=== PATIENT | male | born 1980 | race Caucasian/White ===

== ENCOUNTER 2017-04-06 23:37 | Emergency (ER) | payer OTHER ==
[~2017-04-06] VITALS: Ht 165.1 cm; Wt 92.6 kg
[~2017-04-06 23:37] MED LIST: AMLO-114 PO; GABA800T PO; LSN40 PO
[2017-04-06 23:40] VITALS: TEMP 36.7; Ht 165.1 cm; Wt 92.6 kg
[2017-04-06] MEDS ORDERED: KETOROLAC TROMETHAMINE 60 MG/2 ML VIAL IM STA (23:59)
--- NOTE | 2017-04-07 00:06 | EMERGENCY ROOM VISIT NOTE ---
History Report prepared by Scribadama: Delta Rodriguez Under the Supervision of: Dr. Ren Alaniz D.O. First contact with patient: 23:54 Chief Complaint: HEADACHE Stated Complaint: HEADACHE,LIGHTHEADED,DIZZY,COUGH,NAUSEA History of Present Illness The patient is a 36 year old male who presents to the Emergency Room with complaints of a persistent headache for the past week. The headache is mostly in the back of the head and is described as a pressure sensation. The patient has also been experiencing intermittent fevers, increased coughing and sneezing. He does not have a history of migraines or regular headaches. The patient arrived to the ED with his who is suffering from a migraine. They deny any chemical exposure in their home including carbon monoxide. Source of History: patient Onset: one week ago Position: head Quality: pressure Timing: other (persistent) Associated Symptoms: + cough, + fevers Review of Systems See HPI for pertinent positives and negatives. A total of ten systems were reviewed and were otherwise negative. Past Medical & Surgical Medical Problems: (1) Bronchitis (2) Cellulitis (3) Dental infection (4) Lymphangitis (5) Sinus infection Family History Diabetes mellitus Heart disease Hypertension Stroke Social History Smoking Status: Current Every Day Smoker Alcohol Use: none Drug Use: none Marital Status: Occupation Status: disabled Current/Historical Medications Scheduled Amlodipine (Norvasc), 10 MG PO DAILY Gabapentin (Neurontin), 800 MG PO TID Lisinopril (Lisinopril), 40 MG PO DAILY Allergies Coded Allergies: Omeprazole (Verified Allergy, Unknown, ITCHING, 04/06/17) Physical Exam Vital Signs Date Time Temp Pulse Resp B/P Pulse Ox O2 Delivery O2 Flow Rate FiO2 04/06/17 23:40 36.7 102 18 133/89 96 Room Air Physical Exam GENERAL: Awake, alert, well-appearing, in no distress HENT: Normocephalic, atraumatic. Oropharynx unremarkable. EYES: Normal conjunctiva. Sclera non-icteric. NECK: Supple. No nuchal rigidity. FROM. No JVD. RESPIRATORY: Clear to auscultation. CARDIAC: Regular rate, normal rhythm. Extremities warm and well perfused. Pulses equal. ABDOMEN: Soft, non-distended. No tenderness to palpation. No rebound or guarding. No masses. RECTAL: Deferred. MUSCULOSKELETAL: Chest examination reveals no tenderness. The back is symmetrical on inspection without obvious abnormality. There is no CVA tenderness to palpation. No joint edema. LOWER EXTREMITIES: Calves are equal size bilaterally and non-tender. No edema. No discoloration. NEURO: Normal sensorium. No sensory or motor deficits noted. SKIN: No rash or jaundice noted. Medical Decision & Procedures ED Course 2357: The patient was evaluated in room A9B. A complete history and physical exam was performed. 2359: Toradol 60 mg IM. 0010: I reevaluated the patient. Discussed results and discharge instructions: He verbalized understanding and agreement. The patient is ready for discharge. Medical Decision Differential diagnosis includes tension headache, sinusitis, rhinitis, allergies. Patient is having symptoms suggestive of allergic rhinitis. Patient is afebrile I do not suspect meningitis or sinusitis at this time. Patient was treated with Toradol will need to be treated with outpatient antihistamine use. Impression Primary Impression: Headache Additional Impression: Rhinitis Scribe Attestation The scribe's documentation has been prepared under my direction and personally reviewed by me in its entirety. I confirm that the note above accurately reflects all work, treatment, procedures, and medical decision making performed by me. Departure Information Dispostion Home / Self-Care Referrals Joselito Che M.D. (PCP) Forms HOME CARE DOCUMENTATION FORM, IMPORTANT VISIT INFORMATION Patient Instructions Allergies Nasal, ED Headache Rebound, My [facility] Problem Qualifiers Primary Impression: Headache Headache type: unspecified Headache chronicity pattern: acute headache Intractability: not intractable Qualified Codes: R51 - Headache Additional Impression: Rhinitis Allergic rhinitis trigger: unspecified Allergic rhinitis seasonality: unspecified seasonality
[2017-04-07 01:13] VITALS: BP 148/105; PULSE 87; O2SAT 96
== END 2017-04-07 01:13 | disposition home or self-care (01) ==
LOC: C.EDB 23:40 → C.EDA 04-07 01:13
DX: R51 Headache (principal); J31.0 Chronic rhinitis; Z83.3 Family history of diabetes mellitus; Z82.49 Family history of ischemic heart disease and other diseases of the circulatory system; Z82.3 Family history of stroke; F17.210 Nicotine dependence, cigarettes, uncomplicated; Z79.899 Other long term (current) drug therapy

== ENCOUNTER 2018-06-29 18:35 | Emergency (ER) | payer OTHER ==
[~2018-06-29] VITALS: Ht 175.3 cm; Wt 90.4 kg
[~2018-06-29 18:35] MED LIST changes: -AMLO-114 PO; +AMLO10TA3 PO; +LISI40TA3 PO; -LSN40 PO
[2018-06-29 18:43] VITALS: Ht 175.3 cm; Wt 90.4 kg
[2018-06-29] MEDS ORDERED: CEFAZOLIN SOD 1000MG/7.5 ML IV PUSH IV STA (19:56)
[2018-06-29 20:55] LABS: BASO % 0.6 %; BASO ABS # 0.07 K/uL (0-0.2); EOS % 0.8 %; HEMATOCRIT 46.2 % (42-52); HEMOGLOBIN 15.7 g/dL (14.0-18.0); IG# 0.03 K/uL (0.00-0.02); LYMPH % 12.9 %; LYMPH ABS # 1.56 K/uL (1.2-3.4); MEAN CELL VOLUME 88.3 fL (80-100); MEAN PLATELET VOLUME 12.5 fL (7.4-10.4); MONO % 11.4 %; MONO ABS # 1.39 K/uL (0.11-0.59); NEUT % 74.1 %; NEUT ABS # 8.99 K/uL (1.4-6.5); PLATELET COUNT 187 K/uL (130-400); RED CELL DISTRIBUTION WIDTH CV 13.5 % (11.5-14.5); RED CELL DISTRIBUTION WIDTH SD 43.3 fL (36.4-46.3); WHITE BLOOD COUNT 12.14 K/uL (4.8-10.8)
[2018-06-29 21:12] LABS: CALCIUM 8.6 mg/dl (8.5-10.1); CREATININE 1.06 mg/dl (0.60-1.40); POTASSIUM 3.3 mmol/L (3.5-5.1)
--- NOTE | 2018-06-29 21:51 | DIAGNOSTIC IMAGING REPORT ---
RIGHT LOWER EXTREMITY VENOUS DOPPLER CLINICAL HISTORY: Right leg swelling. Evaluate for deep venous thrombus. COMPARISON STUDY: Right lower extremity venous Doppler November 01, 2016. TECHNIQUE: Sonography of the deep venous system of the right lower extremity was performed. Compression and augmentation were evaluated. FINDINGS: The right common femoral, superficial femoral and popliteal veins were compressible. Augmentation was normal. Flow was shown within the deep calf vessels. Note is made of a prominent 1.5 x 1.2 x 1.5 cm right inguinal lymph node. The cortex is thickened however this node contains a fatty hilum IMPRESSION: 1. No evidence of deep venous thrombus within the right lower extremity. 2. Prominent right inguinal lymph node. This is likely benign given the sonographic appearance however a follow-up ultrasound in 3 months is recommended. Electronically signed by: Gibran Maxwell M.D. 06/29/2018 9:50 PM Dictated Date/Time: 06/29/2018 9:48 PM
[2018-06-29] MEDS ORDERED: CEPH500C PO (22:02)
--- NOTE | 2018-06-29 22:13 | DIAGNOSTIC IMAGING REPORT ---
CHEST 2 VIEWS ROUTINE CLINICAL HISTORY: Cough. Evaluate for pneumonia. COMPARISON STUDY: Chest radiograph October 08, 2016. FINDINGS: Lung volumes are at the lower limits of normal. No pneumothorax or pleural effusion is noted. There is no consolidation or evidence for pulmonary edema. There is borderline cardiomegaly. IMPRESSION: No acute cardiopulmonary findings. Electronically signed by: Gibran Maxwell M.D. 06/29/2018 10:12 PM Dictated Date/Time: 06/29/2018 10:11 PM
[2018-06-29 22:20] VITALS: BP 154/76; PULSE 92; TEMP 37.4; O2SAT 98
--- NOTE | 2018-06-30 18:36 | EMERGENCY ROOM VISIT NOTE ---
History Report prepared by Shana: Anjel Qureshi Under the Supervision of: Dr. Chris Bourgeois M.D. First contact with patient: 19:50 Chief Complaint: INFECTION Stated Complaint: R LEG CELLULITIS Nursing Triage Summary: Patient with right lower leg cellulitis. Patient noticed the redness today. History of Present Illness The patient is a 37 year old male who presents to the Emergency Room with complaints of a right leg pain and swelling since this morning. He notes starting this morning he has had burning and pain in his right leg, with swelling noted. He has noted a fever of 103 degrees. He notes nausea, but denies vomiting/diarrhea. The patient does note intermittent shortness of breath and a mildly productive cough, but notes he has had a cold the past few days which he is getting over. He notes a history of infections in his right leg similar to this for the past few years, but denies a history of MRSA. He states he has an infection like this 3-4 times every year and is usually prescribed Keflex. He denies chest pain. The patient notes his most recent Doppler US was in November 2017 which was negative for DVT. Source of History: patient Onset: x1 day Position: leg (right) Symptom Intensity: moderate Quality: ache Timing: constant, worsening Associated Symptoms: + fevers, + SOB, No chills, No headache, No cough, No neck pain, No chest pain, No nausea, No vomiting, No abdominal pain, No diarrhea , No urinary symptoms Review of Systems See HPI for pertinent positives & negatives. A total of 10 systems reviewed and were otherwise negative. Constitutional: + fever, No chills Respiratory: + cough, + shortness of breath Cardiovascular: No chest pain Abdomen: No pain, No nausea, No vomiting, No diarrhea Musculoskeletal: + swelling Genitourinary - Male: No hematuria, No dysuria, No urinary frequency, No urinary urgency Integumentary: + rash Past Medical & Surgical Medical Problems: (1) Bronchitis (2) Cellulitis (3) Dental infection (4) Lymphangitis (5) Sinus infection Family History Diabetes mellitus Heart disease Hypertension Stroke Social History Smoking Status: Never Smoker Alcohol Use: none Drug Use: none Marital Status: Occupation Status: disabled Current/Historical Medications Scheduled Amlodipine (Norvasc), 10 MG PO DAILY Cephalexin Monohydrate (Keflex), 500 MG PO QID Gabapentin (Neurontin), 800 MG PO TID Allergies Coded Allergies: Omeprazole (Verified Allergy, Unknown, ITCHING, 06/29/18) Physical Exam Vital Signs Date Time Temp Pulse Resp B/P (MAP) Pulse Ox O2 Delivery O2 Flow Rate FiO2 06/29/18 22:20 37.4 92 20 154/76 98 06/29/18 21:15 96 18 141/94 97 Room Air 06/29/18 18:43 36.9 109 18 134/82 97 Room Air Physical Exam Constitutional: Vital signs reviewed. Eyes: Pupils are equal round reactive to light. Conjunctiva are noninjected. ENT: Pharynx is clear without erythema or exudate. Mucous membranes are moist. Neck supple without meningeal signs. Respiratory: Clear to auscultation bilaterally. Breath sounds are equal bilaterally. Cardiovascular: Regular rate and rhythm. No rubs or gallops. GI: Soft, nondistended and nontender. Bowel sounds are present. Musculoskeletal: Right lower extremity with erythema, increased warmth, and swelling below the knee. No joint tenderness. Normal distal pulses. Integumentary: Cellulitis right lower extremity. Neurological: The patient is awake and alert. No focal deficits. Psychiatric: Normal affect. Medical Decision & Procedures Laboratory Results 06/29/18 20:36 Red Blood Count 5.23, Mean Corpuscular Volume 88.3, Mean Corpuscular Hemoglobin 30.0, Mean Corpuscular Hemoglobin Concent 34.0, Mean Platelet Volume 12.5, Neutrophils (%) (Auto) 74.1, Lymphocytes (%) (Auto) 12.9, Monocytes (%) (Auto) 11.4, Eosinophils (%) (Auto) 0.8, Basophils (%) (Auto) 0.6, Neutrophils # (Auto ) 8.99, Lymphocytes # (Auto) 1.56, Monocytes # (Auto) 1.39, Eosinophils # (Auto ) 0.10, Basophils # (Auto) 0.07 06/29/18 20:36 Test 06/29/18 20:36 White Blood Count 12.14 K/uL (4.8-10.8) Red Blood Count 5.23 M/uL (4.7-6.1) Hemoglobin 15.7 g/dL (14.0-18.0) Hematocrit 46.2 % (42-52) Mean Corpuscular Volume 88.3 fL (80-100) Mean Corpuscular Hemoglobin 30.0 pg (25-34) Mean Corpuscular Hemoglobin Concent 34.0 g/dl (32-36) Platelet Count 187 K/uL (130-400) Mean Platelet Volume 12.5 fL (7.4-10.4) Neutrophils (%) (Auto) 74.1 % Lymphocytes (%) (Auto) 12.9 % Monocytes (%) (Auto) 11.4 % Eosinophils (%) (Auto) 0.8 % Basophils (%) (Auto) 0.6 % Neutrophils # (Auto) 8.99 K/uL (1.4-6.5) Lymphocytes # (Auto) 1.56 K/uL (1.2-3.4) Monocytes # (Auto) 1.39 K/uL (0.11-0.59) Eosinophils # (Auto) 0.10 K/uL (0-0.5) Basophils # (Auto) 0.07 K/uL (0-0.2) RDW Standard Deviation 43.3 fL (36.4-46.3) RDW Coefficient of Variation 13.5 % (11.5-14.5) Immature Granulocyte % (Auto) 0.2 % Immature Granulocyte # (Auto) 0.03 K/uL (0.00-0.02) Anion Gap 8.0 mmol/L (3-11) Est Creatinine Clear Calc Drug Dose 107.1 ml/min Estimated GFR () 104.1 Estimated GFR (Non- 89.8 BUN/Creatinine Ratio 9.6 (10-20) Calcium Level 8.6 mg/dl (8.5-10.1) Medications Administered Medications (Trade) Dose Ordered Sig/Erica Route Start Time Stop Time Status Last Admin Dose Admin Cefazolin Sodium (Cefazolin 1000mg Iv Push) 1,000 mg NOW STAT IV 06/29/18 19:56 06/29/18 19:58 DC 06/29/18 21:07 1,000 MG ED Course Recheck: 2200: Reviewed test results with patient. Medical Decision This is a 37-year-old male presents with right leg swelling and redness with cough. Differential diagnosis includes cellulitis, DVT, superficial thrombophlebitis, pneumonia, bronchitis. I did perform a limited focused review of portions of the patient's old chart on the electronic medical record. The patient has had no recent pertinent visits to this hospital. I did evaluate the patient as noted above. IV access was established. The patient was placed on a continuous monitoring engineer. I did order and personally review the patient's chest x-ray as described above. He does not have pneumonia. I did order and review the patient's blood work as noted in the electronic medical record. His white blood cell count is slightly elevated and he has mild hypokalemia. I did order a Doppler ultrasound of the right leg. I did review the images myself as well as the radiology report as described above. There is no evidence of DVT he was treated with Ancef and discharged with a prescription for Keflex. I did discuss the test results with him. He was advised to follow-up closely with his doctor and to return for any worsening symptoms. Medication Reconcilliation Current Medication List: was personally reviewed by me Blood Pressure Screening Patient's blood pressure: Elevated blood pressure Blood pressure disposition: Referred to PCP Impression Primary Impression: Cellulitis of right leg Additional Impression: Bronchitis Scribe Attestation The scribe's documentation has been prepared under my direct and personally reviewed by me in its entirety. I confirm that the note above accurately reflects all work, treatment, procedures, and medical decision making performed by me. Departure Information Dispostion Home / Self-Care Prescriptions Cephalexin Monohydrate (Keflex) 500 Mg Cap 500 MG PO QID for 10 Days, #40 CAP Prov: Chris Bourgeois M.D. 06/29/18 Referrals Joseltio Che M.D. (PCP) Patient Instructions My [facility] Problem Qualifiers
== END 2018-06-29 22:21 | disposition home or self-care (01) ==
LOC: C.EDB 18:37 → C.EDC 22:21
DX: L03.115 Cellulitis of right lower limb (principal); J40 Bronchitis, not specified as acute or chronic; Z79.899 Other long term (current) drug therapy; Z88.8 Allergy status to other drugs, medicaments and biological substances

== ENCOUNTER 2023-01-28 16:06 | Inpatient (IN) ==
[2023-01-28] MEDS ORDERED: VANCOMYCIN HCL 2,000 MG in SODIUM CHLORIDE 0.9% 500 ML IV ONE (17:14)
[2023-01-28] MEDS ORDERED: VANCOMYCIN CONSULT ACTIVE PRN (17:14)
[2023-01-28] MEDS ORDERED: PIPERACILLIN/TAZOBACTAM 4.5 GM/120 ML BAG IV ONE (17:14)
[2023-01-28] MEDS ORDERED: SODIUM CHLORIDE 0.9% 1000ML 1,000 ML IV SCH ×2 (17:15→20:51)
[2023-01-28] MEDS ORDERED: NICOTINE 21 MG/24 HR TDSY TD STA (17:15)
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
[2023-01-28] MEDS ORDERED: ACETAMINOPHEN 500 MG TAB PO STA (17:49)
[2023-01-28 17:55] LABS: Hematocrit (blood only) 43.2 % (42.0-52.0); Hemoglobin 14.7 g/dl (14.0-18.0); Mean Corpuscular Hemoglobin 31.1 pg (25.0-34.0); Mean Corpuscular Volume 91.3 fL (80.0-100.0); Mean Platelet Volume 12.1 fL (9.4-12.4); Platelet Count 250 K/uL (130-400); RDW Standard Deviation 47.1 fL (36.4-46.3); Red Blood Count 4.73 M/uL (4.70-6.10); White Blood Count 34.46 K/ul (4.8-10.8)
[2023-01-28 18:03] LABS: Albumin Globulin Ratio 1.2 (0.9-2); Albumin Level 3.8 gm/dl (3.4-5.0); BUN Creatinine Ratio 12.4 (10-20); Bilirubin,Total 0.5 mg/dl (0.2-1.0); Calcium 8.7 mg/dl (8.5-10.1); Creatinine Clr Calc Pharmacy 87.4 ml/min; Est GFR (African American) 85.7 ml/min; Est GFR (Non-African American) 73.9 ml/min; Globulin 3.2 gm/dl (2.5-4.0); Magnesium 1.7 mg/dl (1.7-2.4); Potassium 3.7 mmol/L (3.5-5.1)
[2023-01-28 18:13] LABS: Basophils # (auto) 0.11 K/uL (0-0.2); Basophils % (auto) 0.3 %; Eosinophils # (auto) 0.01 K/uL (0-0.50); Immature Granulocytes # (auto) 1.35 K/uL (0.01-0.20); Immature Granulocytes % (auto) 3.9 %; Lymphocytes # (auto) 0.37 K/uL (1.2-3.4); Lymphocytes % (auto) 1.1 %; Monocytes # (auto) 0.45 K/uL (0.11-0.59); Monocytes % (auto) 1.3 %; Neutrophils # (auto) 32.17 K/uL (1.40-6.50); Neutrophils % (auto) 93.4 %
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
[2023-01-28] MEDS ORDERED: ONDANSETRON INJ 2 MG/ML 2 ML VIAL IV STA (19:26)
[2023-01-28] MEDS ORDERED: LACTATED RINGER'S 1,000 ML IV ONE (20:38)
[2023-01-28] MEDS ORDERED: LORazepam 0.5 MG TAB PO PRN (20:51)
[2023-01-28] MEDS ORDERED: ACETAMINOPHEN 325 MG TAB PO PRN (20:51)
[2023-01-28] MEDS ORDERED: ONDANSETRON INJ 2 MG/ML 2 ML VIAL IV PRN (20:51)
[2023-01-28] MEDS ORDERED: ACETAMINOPHEN 1,000 MG/100 ML VIAL IV PRN (22:20)
[2023-01-28] MEDS: DAPTOmycin 475 MG in SYRINGE 0 ML IV SCH (22:26)
[2023-01-28] MEDS: CEFEPIME 2,000 MG in SYRINGE 0 ML IV SCH (22:27)
[2023-01-28] MEDS: HEPARIN SOD 5,000 UNIT/0.5 ML VIAL SQ SCH (22:28)
[2023-01-28] MEDS: CETIRIZINE HCL 10 MG TABLET PO SCH (22:29)
[2023-01-28] MEDS: FAMOTIDINE 20 MG TAB PO SCH (22:29)
[2023-01-28] MEDS: GABAPENTIN 800 MG TAB PO SCH (22:30)
[2023-01-29] MEDS ORDERED: POTASSIUM CHLORIDE PWD 20 MEQ PACK PO STA (03:03)
[2023-01-29] MEDS ORDERED: LACTATED RINGER'S 1,000 ML IV ONE (03:15)
[2023-01-29] MEDS ORDERED: KETOROLAC TROMETHAMINE 15 MG/ML VIAL IV ONE (03:15)
[2023-01-29] MEDS: MAGNESIUM SULFATE / D5W 1 GM/100 ML BAG IV SCH ×2 (03:42→06:04)
[2023-01-29] MEDS: CEFEPIME 2,000 MG in SYRINGE 0 ML IV SCH ×2 (06:03→15:18)
[2023-01-29] MEDS: HEPARIN SOD 5,000 UNIT/0.5 ML VIAL SQ SCH ×3 (06:03→21:44)
[2023-01-29 07:02] LABS: Hemoglobin 13.2 g/dl (14.0-18.0); Mean Corpuscular Hemoglobin 30.6 pg (25.0-34.0); Mean Corpuscular Hgb Conc 33.8 g/dL (32.0-36.0); Mean Corpuscular Volume 90.5 fL (80.0-100.0); Platelet Count 195 K/uL (130-400); RDW Coefficient of Variation 14.2 % (11.5-14.5); RDW Standard Deviation 47.1 fL (36.4-46.3); Red Blood Count 4.31 M/uL (4.70-6.10); White Blood Count 33.17 K/ul (4.8-10.8)
[2023-01-29 08:16] LABS: BUN Creatinine Ratio 11.2 (10-20); Calcium 7.9 mg/dl (8.5-10.1); Creatinine Clr Calc Pharmacy 86.5 ml/min; Est GFR (African American) 82.4 ml/min; Est GFR (Non-African American) 71.1 ml/min; Potassium 3.6 mmol/L (3.5-5.1)
[2023-01-29] MEDS: SODIUM CHLORIDE 0.9% 1000ML 1,000 ML IV SCH ×2 (08:37→16:40)
[2023-01-29] MEDS ORDERED: NICOTINE 21 MG/24 HR TDSY TD SCH (09:00)
[2023-01-29] MEDS ORDERED: amLODIPine BESYLATE 5 MG TAB PO SCH (09:00)
[2023-01-29] MEDS: MONTELUKAST SODIUM 10 MG TABLET PO SCH (09:47)
[2023-01-29] MEDS: ACETAMINOPHEN 325 MG TAB PO SCH ×3 (09:47→21:41)
[2023-01-29] MEDS: GABAPENTIN 800 MG TAB PO SCH ×3 (09:47→21:43)
[2023-01-29] MEDS: FAMOTIDINE 20 MG TAB PO SCH ×2 (09:47→21:43)
[2023-01-29] MEDS: PANTOprazole 40 MG TAB PO SCH (09:47)
--- NOTE | 2023-01-29 10:39 | Electrocardiogram Report ---
Test Reason : Blood Pressure : / mmHG Vent. Rate : 123 BPM Atrial Rate : 123 BPM P-R Int : 118 ms QRS Dur : 088 ms QT Int : 322 ms P-R-T Axes : 066 021 055 degrees QTc Int : 460 ms Sinus tachycardia Otherwise normal ECG When compared with ECG of 28-JAN-2023 03:26, No significant change was found Confirmed by Hebert Valdez ([id number]) on 01/29/2023 10:39:11 AM Referred By: REFERRED SELF Confirmed By:Hebert Valdez
[2023-01-29] MEDS ORDERED: GADOBUTROL 30ML VIAL IV ONE (11:56)
--- NOTE | 2023-01-29 12:32 | Magnetic Resonance Report ---
MRI OF THE RIGHT TIBIA AND FIBULA COMBO CLINICAL HISTORY: Cellulitis. COMPARISON STUDY: CT scan of the right tibia and fibula dated 01/28/2023. TECHNIQUE: MRI of the right tibia and fibula is performed utilizing various T1 and T2-weighted sequen belen in the axial, sagittal, and coronal planes. Contrast-enhanced sequences were acquired following t he IV administration of 10.5 cc of Gadavist. The examination is degraded by motion artifact. FINDINGS: Normal marrow signal intensity is maintained throughout the right tibia and fibula. There i s no marrow edema or erosion to suggest osteomyelitis. The knee and ankle joints are grossly maintain ed. Subcutaneous soft tissue edema and fluid is seen throughout the right lower extremity. No organiz ed fluid collection is seen to indicate abscess. There is no MRI evidence of soft tissue gas. The Ach illes tendon is intact as visualized. The regional musculature is normal in bulk and signal intensity . IMPRESSION: 1. No bony abnormality seen involving the right tibia or fibula. 2. There is evidence of cellulitis throughout the right lower extremity. 3. No organized/drainable fluid collection is seen to suggest abscess. Dictated: 01/29/2023 12:08 PM Transcribed: 01/29/2023 12:21 PM Edith [id number] ABDIAS_Jose Enrique Electronically signed by: Bob Crawford M.D. 01/29/2023 12:30 PM
[2023-01-29] MEDS: BENZONATATE 100 MG CAPSULE PO PRN ×2 (16:05→21:45)
[2023-01-29] MEDS: NICOTINE 14 MG/24 HR PATCH TD SCH (16:30)
[2023-01-29] MEDS ORDERED: NAPROXEN 250 MG TAB PO PRN (16:30)
[2023-01-29] MEDS ORDERED: PIPERACILLIN/TAZOBACTAM 4.5 GM in DEXTROSE 5% 100 ML IV ONE (16:45)
--- NOTE | 2023-01-29 17:13 | Hospitalist Progress Note ---
Date of Service January 29, 2023 Assessment & Plan (1) Severe sepsis: (2) Cellulitis of right lower extremity: Plan: Per NAKIA florian's notes with addendum: Admit to [facility] with telemetry Patient presenting from home after signing out AMA this morning for being admitted for RLE cellulitis In the ED, patient has low-grade temp of 37.6, tachycardic in the 120s, WBC 34 K, lactate 2.1. BP stable. S/p Vanco and Zosyn in the ED, continue with Dapto and cefepime. Previously performed: venous Doppler negative for DVT, no signs of osteomyelitis or abscess on lower extremity CT Follow blood cultures 01/29 MRI of the right lower extremity: No abscess, fluid collection, gas collection Blood cultures: Pending Still febrile With leukocytosis of 33 K Continue daptomycin, change cefepime to Zosyn ID consulted IV fluids Scheduled Tylenol for fever, with as needed naproxen (3) NATALIA (acute kidney injury): Plan: Creatinine on earlier labs 1.6, now improved to 1.2 No signs of renal obstruction on previously performed CT ABD/pelvis NATALIA due to sepsis Continue to hold lisinopril for now Continue IVF Follow renal functions 01/29 Resolved (4) Hypertension: Plan: BP controlled, continue amlodipine Hold lisinopril due to NATALIA 01/29 On the lower side Hold amlodipine (5) Tobacco abuse: Plan: Cessation encouraged Nicotine patch ordered As needed inhalers DVT PROPHYLAXIS SQ heparin plan of care discussed with patient and family at the bedside in detail and at length all questions answered They are understanding, agreeable, comfortable with the plan of care Admission and Anticipated Discharge Date Admission Date: January 28, 2023 Subjective Follow-up for right lower extremity cellulitis, etc. Seen resting in bed, comfortable, not in distress Reports feeling somewhat better compared to yesterday Still febrile Has some discomfort in the right lower extremity Mild headache No shortness of breath, chest pain, palpitations, dizziness No other symptoms Review of Systems Review of Systems: all noted and negative except for above Physical Exam Physical Exam: General- oriented x 3, not in distress, speaks in sentences with no effort or accessory muscle use Eyes- anicteric Neck- no JVD Lungs- clear breath sounds bilaterally, no rales/wheezes Heart- normal rate, regular rhythm; no murmurs Abdomen- normal bowel sounds, nondistended, soft, nontender Extremities-r Right lower extremity: Lower leg-significant erythema, edema, mild warmth Faint streaking on the inguinal area Left lower extremity: Essentially normal Neuro- alert, oriented x 3; no gross focal neurologic deficits Skin- warm & dry Results & Data Results & Data ([facility]) Vital Signs (Past 12 Hours) Vital Signs Temp Pulse Pulse Resp BP Pulse Ox O2 Del Method 01/29/23 14:16 39.3 C H 01/29/23 16:11 122 H 01/29/23 15:46 39.5 C H 132 H 20 114/68 96 Room Air 01/29/23 15:24 Room Air 01/29/23 10:23 112 H 01/29/23 07:46 38.2 C H 120 H 20 123/66 98 Room Air all noted and reviewed including below
[2023-01-29] MEDS ORDERED: XOPENEX/ATROVENT 1.25mg/0.5MG NEB COMBO NEB PRN (17:24)
[2023-01-29] MEDS ORDERED: ALBUTEROL HFA 8 GM INHALER INH PRN (17:24)
[2023-01-29] MEDS: CETIRIZINE HCL 10 MG TABLET PO SCH (21:43)
[2023-01-29] MEDS: PIPERACILLIN/TAZOBACTAM 4.5 GM in DEXTROSE 5% 100 ML IV SCH (21:44)
[2023-01-29] MEDS: DAPTOmycin 475 MG in SYRINGE 0 ML IV SCH (21:56)
[2023-01-29] MEDS: IPRATROPIUM BROMIDE NEB SOLN 0.02% 2.5 ML VIAL INH PRN (21:56)
[2023-01-29] MEDS: LEVALBUTEROL 1.25MG/0.5ML NEB INH PRN (21:56)
[2023-01-30] MEDS: SODIUM CHLORIDE 0.9% 1000ML 1,000 ML IV SCH ×3 (01:15→18:12)
[2023-01-30] MEDS: ACETAMINOPHEN 325 MG TAB PO SCH ×4 (05:00→20:27)
[2023-01-30] MEDS: HEPARIN SOD 5,000 UNIT/0.5 ML VIAL SQ SCH ×3 (05:59→20:28)
[2023-01-30] MEDS: PIPERACILLIN/TAZOBACTAM 4.5 GM in DEXTROSE 5% 100 ML IV SCH (05:59)
[2023-01-30] MEDS: BENZONATATE 100 MG CAPSULE PO PRN ×2 (06:07→20:28)
[2023-01-30] MEDS: GABAPENTIN 800 MG TAB PO SCH ×3 (07:41→20:28)
[2023-01-30] MEDS: NICOTINE 14 MG/24 HR PATCH TD SCH (07:42)
[2023-01-30] MEDS: MONTELUKAST SODIUM 10 MG TABLET PO SCH (09:32)
[2023-01-30] MEDS: PANTOprazole 40 MG TAB PO SCH (09:32)
[2023-01-30] MEDS: FAMOTIDINE 20 MG TAB PO SCH ×2 (09:32→20:28)
[2023-01-30] MEDS ORDERED: VANCOMYCIN CONSULT ACTIVE PRN (11:54)
[2023-01-30] MEDS ORDERED: VANCOMYCIN HCL 2,000 MG in SODIUM CHLORIDE 0.9% 500 ML IV ONE (12:30)
[2023-01-30 13:50] LABS: Creatinine Clr Calc Pharmacy 90.1 ml/min; Est GFR (African American) 86.5 ml/min; Est GFR (Non-African American) 74.7 ml/min
--- NOTE | 2023-01-30 14:14 | Hospitalist Progress Note ---
Date of Service January 30, 2023 Assessment & Plan (1) Severe sepsis: (2) Cellulitis of right lower extremity: Plan: Presented from home with right lower extremity cellulitis. Febrile overnight, tachycardic. WBC elevated to 33. Venous duplex negative for DVT. MRI of the lower extremity did not show any abscess or fluid collection Blood culture negative so far. ID consulted; recommend continue on vancomycin for now; switched to linezolid at discharge to complete 14-day course. (3) NATALIA (acute kidney injury): Plan: Creatinine on earlier labs 1.6, now improved to 1.2 No signs of renal obstruction on previously performed CT ABD/pelvis NATALIA due to sepsis Continue to hold lisinopril for now Continue IVF Follow renal functions (4) Hypertension: Plan: Antihypertensive on hold due to hypotension (5) Tobacco abuse: Plan: Cessation encouraged Nicotine patch ordered As needed inhalers DVT PROPHYLAXIS SQ heparin Admission and Anticipated Discharge Date Admission Date: January 28, 2023 Subjective Patient seen and examined at bedside. Febrile overnight with chills. He reports that redness and swelling has improved. Review of Systems Review of Systems: All systems reviewed & are unremarkable except as noted in Subjective Physical Exam Physical Exam: Constitutional: WD/WN, vitals as above, NAD, sitting up in bed, pleasant, conversing easily Respiratory: normal respiratory effort, lungs clear to auscultation, no wheeze, rales, rhonchi. Normal insp/exp effort, no accessory muscle use Cardiovascular: RRR, no murmur, no edema Vessels: no JVD or carotid bruit Chest: normal inspection of chest Abdomen: normal bowel sounds, soft, nontender, no hepatosplenomegaly Musculoskeletal: Right leg swollen, red and warm. Tenderness on palpation. Skin: no rashes, warm and dry normal turgor Neurologic: PERRL, EOMI, accommodation nl, no face palsy, no dysarthria CN's II- XI intact bilaterally and moves all extremities Psychiatric: A+Ox3, euthymic affect Lymphatic: no cervical or axillary lymphadenopathy : deferred Results & Data Results & Data ([facility]) Vital Signs (Past 12 Hours) Vital Signs Temp Pulse Pulse Resp BP Pulse Ox O2 Del Method 01/30/23 10:54 37.1 C 112 H 16 129/79 96 Room Air 01/30/23 08:00 Room Air 01/30/23 07:42 37.1 C 112 H 16 131/82 96 Room Air 01/30/23 07:00 118 H 01/30/23 06:15 116 H 20 94 Room Air 01/30/23 02:49 36.9 C 103 H 20 123/79 94 Room Air Laboratory Results Laboratory Results WBC 33.17 K/ul (4.8-10.8) H* 01/29/23 06:04 RBC 4.31 M/uL (4.70-6.10) L 01/29/23 06:04 Hgb 13.2 g/dl (14.0-18.0) L 01/29/23 06:04 Hct 39.0 % (42.0-52.0) L 01/29/23 06:04 MCV 90.5 fL (80.0-100.0) 01/29/23 06:04 MCH 30.6 pg (25.0-34.0) 01/29/23 06:04 MCHC 33.8 g/dL (32.0-36.0) 01/29/23 06:04 RDW Std Deviation 47.1 fL (36.4-46.3) H 01/29/23 06:04 RDW Coeff of Florencio 14.2 % (11.5-14.5) 01/29/23 06:04 Plt Count 195 K/uL (130-400) 01/29/23 06:04 MPV 12.0 fL (9.4-12.4) 01/29/23 06:04 Immature Gran % (Auto) 3.9 % 01/28/23 17:26 Neut % (Auto) 93.4 % 01/28/23 17:26 Lymph % (Auto) 1.1 % 01/28/23 17:26 Power % (Auto) 1.3 % 01/28/23 17:26 Eos % (Auto) 0.0 % 01/28/23 17:26 Baso % (Auto) 0.3 % 01/28/23 17:26 Neut # (Auto) 32.17 K/uL (1.40-6.50) H 01/28/23 17:26 Lymph # (Auto) 0.37 K/uL (1.2-3.4) L 01/28/23 17:26 Power # (Auto) 0.45 K/uL (0.11-0.59) 01/28/23 17:26 Eos # (Auto) 0.01 K/uL (0-0.50) 01/28/23 17:26 Baso # (Auto) 0.11 K/uL (0-0.2) 01/28/23 17:26 Immature Gran # (Auto) 1.35 K/uL (0.01-0.20) H 01/28/23 17:26 Sodium 140 mmol/L (136-145) 01/29/23 06:04 Potassium 3.6 mmol/L (3.5-5.1) 01/29/23 06:04 Chloride 112 mmol/L (98-107) H 01/29/23 06:04 Carbon Dioxide 19 mmol/L (21-32) L 01/29/23 06:04 Anion Gap 9 (3-11) 01/29/23 06:04 BUN 14 mg/dl (6-23) 01/29/23 06:04 Creatinine 1.20 mg/dl (0.6-1.4) 01/30/23 08:37 Est Cr Clr Drug Dosing 90.1 ml/min 01/30/23 08:37 Est GFR ( Amer) 86.5 ml/min 01/30/23 08:37 Est GFR (Non-Af Amer) 74.7 ml/min 01/30/23 08:37 BUN/Creatinine Ratio 11.2 (10-20) 01/29/23 06:04 Glucose 96 mg/dl (70-99(Fasting)) 01/29/23 06:04 Lactate 1.9 mmol/L (0.4-2.0) 01/28/23 19:23 Calcium 7.9 mg/dl (8.5-10.1) L 01/29/23 06:04 Magnesium 1.7 mg/dl (1.7-2.4) 01/28/23 17:26 Total Bilirubin 0.5 mg/dl (0.2-1.0) 01/28/23 17:26 AST 24 U/L (13-39) 01/28/23 17:26 ALT 30 U/L (7-52) 01/28/23 17:26 Alkaline Phosphatase 68 U/L (34-104) 01/28/23 17:26 Total Creatine Kinase 445 U/L (30-223) H 01/30/23 08:36 Total Protein 7.0 gm/dl (6.0-8.3) 01/28/23 17:26 Albumin 3.8 gm/dl (3.4-5.0) 01/28/23 17:26 Globulin 3.2 gm/dl (2.5-4.0) 01/28/23 17:26 Albumin/Globulin Ratio 1.2 (0.9-2) 01/28/23 17:26 Procalcitonin 4.54 ng/ml (0-0.5) H 01/28/23 17:26 SARS-CoV-2, RNA, NAAT NEGATIVE (NEGATIVE) 01/28/23 18:20 Impressions Lower Extremity MRI 01/29/23 09:19 MRI OF THE RIGHT TIBIA AND FIBULA COMBO CLINICAL HISTORY: Cellulitis. COMPARISON STUDY: CT scan of the right tibia and fibula dated 01/28/2023. TECHNIQUE: MRI of the right tibia and fibula is performed utilizing various T1 and T2-weighted sequences in the axial, sagittal, and coronal planes. Contrast- enhanced sequences were acquired following the IV administration of 10.5 cc of Gadavist. The examination is degraded by motion artifact. FINDINGS: Normal marrow signal intensity is maintained throughout the right t ibia and fibula. There is no marrow edema or erosion to suggest osteomyelitis. The knee and ankle joints are grossly maintained. Subcutaneous soft tissue edema and fluid is seen throughout the right lower extremity. No organized fluid collection is seen to indicate abscess. There is no MRI evidence of soft tissue gas. The Achilles tendon is intact as visualized. The regional musculature is normal in bulk and signal intensity. IMPRESSION: 1. No bony abnormality seen involving the right tibia or fibula. 2. There is evidence of cellulitis throughout the right lower extremity. 3. No organized/drainable fluid collection is seen to suggest abscess. Dictated: 01/29/2023 12:08 PM Transcribed: 01/29/2023 12:21 PM Edith [id number] ABDIAS_Jose Enrique Electronically signed by: oBb Crawford M.D. 01/29/2023 12:30 PM
--- NOTE | 2023-01-30 14:35 | Pharmacy Report ---
Pharmacy PK ABX Note - Date of Service January 30, 2023 - Assessment and Plan Assessment 42 year old M receiving vancomycin for treatment of sepsis 2/2 right lower extremity cellulitis. Blood cultures no growth to date. Patient was receiving daptomycin q24h on 01/28 and 01/29. CPK today elevated and transitioned to vancomycin monotherapy. ID consulted. Day #1 (vancomycin) of antimicrobial therapy. Plan Vancomycin * Loading dose: 2000 mg IV x 1 * Maintenance dose: 1250 mg IV every 12 hours * Regimen is predicted to achieve target AUC/NITIN of 400-600 mg/L.hr * Will obtain a level prior to the 3rd dose of maintenance regimen as BMI >35 and at risk for accumulation. Pharmacy will continue to follow and will adjust dose/frequency as necessary. Thank you. Pharmacy has transitioned to AUC monitoring for vancomycin. AUC/NITIN is the preferred PK/PD target and is associated with decreased risk of nephrotoxicity compared to traditional trough targets.
[2023-01-30] MEDS: LEVALBUTEROL 1.25MG/0.5ML NEB INH PRN (18:21)
[2023-01-30] MEDS: IPRATROPIUM BROMIDE NEB SOLN 0.02% 2.5 ML VIAL INH PRN (18:21)
[2023-01-30] MEDS: CETIRIZINE HCL 10 MG TABLET PO SCH (20:28)
[2023-01-30] MEDS ORDERED: OPTIRAY 350 100ml IV ONE (20:45)
[2023-01-30] MEDS: MAGNESIUM SULFATE / D5W 1 GM/100 ML BAG IV SCH (21:02)
--- NOTE | 2023-01-30 21:10 | CT Scan Report ---
CT tib/fib RT w con CLINICAL HISTORY: worsening swelling of right lower leg. Ro abscess COMPARISON STUDY: Right lower leg MRI 01/29/[address] right lower leg CT 01/28/2023. FINDINGS: Progressive subcutaneous edema within the right lower leg with associated skin thickening. No loculated fluid collections to suggest an abscess. No soft tissue gas identified. No radiopaque fo reign bodies. The muscle compartments remain intact. The major vascular structures appear patent. No fracture or dislocation within the right lower leg. No erosive changes to suggest an osteomyelitis. IMPRESSION: 1. Progressive subcutaneous edema and skin thickening within the right lower leg. This may represent a cellulitis. 2. No loculated fluid collections to suggest an abscess. 3. No evidence for osteomyelitis. ACT 112: Negative or not required by law. Electronically signed by: Ezra Daugherty M.D. 01/30/2023 9:08 PM
[2023-01-30] MEDS ORDERED: ALBUMIN 25% 100 mL 25 GM/100 ML VIAL IV ONE (21:37)
[2023-01-30 21:48] LABS: Magnesium 2.1 mg/dl (1.7-2.4)
[2023-01-31] MEDS: MAGNESIUM SULFATE / D5W 1 GM/100 ML BAG IV SCH (00:23)
[2023-01-31] MEDS ORDERED: FUROSEMIDE INJ 20 MG/2 ML VIAL IV ONE (01:26)
--- NOTE | 2023-01-31 02:06 | Communication Note ---
Date of Service: January 31, 2023 Patient complaining of increased right leg swelling. 1. Progressive subcutaneous edema and skin thickening within the right lower leg. This may represent a cellulitis. 2. No loculated fluid collections to suggest an abscess. 3. No evidence for osteomyelitis. Hold crystalloid IVF for now Lasix albumin 1 dose.
[2023-01-31 02:32] LABS: Hematocrit (blood only) 35.8 % (42.0-52.0); Hemoglobin 12.2 g/dl (14.0-18.0); Mean Corpuscular Hemoglobin 30.3 pg (25.0-34.0); Mean Corpuscular Hgb Conc 34.1 g/dL (32.0-36.0); Mean Corpuscular Volume 88.8 fL (80.0-100.0); Mean Platelet Volume 11.5 fL (9.4-12.4); Platelet Count 187 K/uL (130-400); RDW Coefficient of Variation 14.6 % (11.5-14.5); Red Blood Count 4.03 M/uL (4.70-6.10); White Blood Count 15.83 K/ul (4.8-10.8)
[2023-01-31 02:39] LABS: BUN Creatinine Ratio 12.6 (10-20); Calcium 8.1 mg/dl (8.5-10.1); Creatinine Clr Calc Pharmacy 97.4 ml/min; Est GFR (African American) 95.1 ml/min; Potassium 3.5 mmol/L (3.5-5.1)
[2023-01-31] MEDS: ACETAMINOPHEN 325 MG TAB PO SCH ×3 (03:53→15:44)
[2023-01-31 04:00] LABS: Basophils # (auto) 0.08 K/uL (0-0.2); Basophils % (auto) 0.5 %; Dohle Bodies 1+; Eosinophils # (auto) 0.17 K/uL (0-0.50); Eosinophils % (auto) 1.1 %; Immature Granulocytes # (auto) 0.11 K/uL (0.01-0.20); Immature Granulocytes % (auto) 0.7 %; Lymphocytes # (auto) 1.66 K/uL (1.2-3.4); Lymphocytes % (auto) 10.5 %; Monocytes # (auto) 1.38 K/uL (0.11-0.59); Monocytes % (auto) 8.7 %; Neutrophils # (auto) 12.43 K/uL (1.40-6.50); Neutrophils % (auto) 78.5 %
[2023-01-31] MEDS ORDERED: POTASSIUM CHLORIDE PWD 20 MEQ PACK PO STA (04:13)
[2023-01-31] MEDS ORDERED: ALBUMIN 25% 100 mL 25 GM/100 ML VIAL IV ONE (04:13)
[2023-01-31] MEDS: HEPARIN SOD 5,000 UNIT/0.5 ML VIAL SQ SCH ×2 (04:32→14:02)
[2023-01-31] MEDS: VANCOMYCIN HCL 1,250 MG in SODIUM CHLORIDE 0.9% 250 ML IV SCH ×2 (05:55→16:51)
[2023-01-31] MEDS: MONTELUKAST SODIUM 10 MG TABLET PO SCH (09:47)
[2023-01-31] MEDS: FAMOTIDINE 20 MG TAB PO SCH (09:48)
[2023-01-31] MEDS: GABAPENTIN 800 MG TAB PO SCH ×2 (09:48→14:02)
[2023-01-31] MEDS: PANTOprazole 40 MG TAB PO SCH (09:48)
[2023-01-31] MEDS: NICOTINE 14 MG/24 HR PATCH TD SCH (09:50)
--- NOTE | 2023-01-31 13:00 | Discharge Summary ---
Date of Service January 31, 2023 Admission HPI Per Admitting Provider 42-year-old male with PMH HTN, RLE lymphedema, tobacco abuse, GERD, and other problems listed below who presents to the ED for evaluation of right leg infection. History obtained from patient and review of recent inpatient records and outpatient PCP records. Patient initially admitted to [facility] early this morning for RLE cellulitis however patient subsequently signed out AMA due to wanting to smoke a cigarette. Patient reports that upon returning home, he smoked a cigarette and " was able to calm down". Patient reports he slept for a few hours however whenever he woke up he had an episode of vomiting. Patient also reports chills and rigors. He decided to come back to the ED for reevaluation. Patient denies chest pain and shortness of breath. No lightheadedness, dizziness, diaphoresis, syncopal events. No abdominal pain or diarrhea. Denies urinary symptoms. In the ED, patient has a low-grade fever of 37.6, he is tachycardic in the 120s, BP is stable. Labs show WBC 34 K, lactate 2.1, procalcitonin 4.5. Patient was given Tylenol, IV Zosyn, IV Vanco, IVF. Admission Exam Per Admitting Provider GENERAL: Slightly uncomfortable, slightly anxious, obese, looks older than stated age, no respiratory distress SKIN: Normal color, warm HEENT: [place] palpebral conjunctivae, no ptosis, dry buccal mucosa NECK : Supple, short neck, no tenderness CHEST : Decreased breath sounds, no tenderness HEART : RRR, no obvious murmurs ABDOMEN: Some distention, nontender EXTREMITIES : Tender RLE induration, no other conspicuous deformities noted NEUROLOGIC : Coherent, no facial asymmetry, no other gross focality Principal Diagnosis Severe sepsis Cellulitis of right lower extremity Acute kidney injury Discharge Exam Constitutional: WD/WN, vitals as above, NAD, sitting up in bed, pleasant, conversing easily Respiratory: normal respiratory effort, lungs clear to auscultation, no wheeze, rales, rhonchi. Normal insp/exp effort, no accessory muscle use Cardiovascular: RRR, no murmur, no edema Vessels: no JVD or carotid bruit Chest: normal inspection of chest Abdomen: normal bowel sounds, soft, nontender, no hepatosplenomegaly Musculoskeletal: Right leg red, warm and swollen below the the knee. Slight improvement compared to yesterday. Skin: no rashes, warm and dry normal turgor Neurologic: PERRL, EOMI, accommodation nl, no face palsy, no dysarthria CN's II- XI intact bilaterally and moves all extremities Psychiatric: A+Ox3, euthymic affect Lymphatic: no cervical or axillary lymphadenopathy : deferred Discharge Data Allergies Allergy/AdvReac Type Severity Reaction Status Date / Time omeprazole Allergy Unknown ITCHING Verified 01/28/23 08:24 Consultations 01/28/23 17:29 ED Decision to Admit Stat 01/29/23 08:36 Consult Infectious Diseases Routine Ordered Studies 01/29/23 09:19 MR lower leg RT wo/w con Routine 01/30/23 20:18 CT tib/fib RT w con Urgent Hospital Course (1) Severe sepsis: (2) Cellulitis of right lower extremity: (3) NATALIA (acute kidney injury): Plan Patient is a 42-year-old male with past medical history of right lower extremity lymphedema, history of traumatic right tib-fib fracture status postsurgery, GERD, hypertension presented to the ED with right lower leg cellulitis. Patient has history of recurrent cellulitis in the past; had been approved with oral antibiotic. On presentation to the ED, he was febrile, tachycardic; hemodynamically stable and saturating well on room air. He was found to have marked leukocytosis with elevation of lactate to 2.1. He was admitted to telemetry for further management of right lower extremity cellulitis. He was started on daptomycin and Zosyn. He was also started on IV fluids for NATALIA (presented with creatinine of 1.6). MRI of the leg was performed; no abscess or fluid collection were found. Right lower extremity Dopplers ruled out DVT as well. Infectious disease was consulted; recommended to continue on vancomycin and switch over to linezolid at discharge to complete 14-day course. Over the course of hospitalization, patient's cellulitis improved with IV antibiotics with improvement of swelling and redness. Blood culture were negative during the hospitalization. On the day after discharge, patient was very insistent on going home as he has inspection coming over to his house. He was recommended to continue on IV antibiotics for 1 more day. However, with further discussion; patient assured that he was feeling much better and wanted to get discharged after the dose of vancomycin for the day. His leukocytosis had improved. NATALIA had resolved. He was discharged on 14 days of linezolid with instruction to follow-up with his primary care doctor. Total Time Total Time Spent Total Time Spent (In Minutes): 40 Total Time Includes: Examination of the Patient, Discharge Planning, Medication Reconciliation, Communication With Other Providers and Other Discharge Plan Discharge Items Patient Disposition: Home - Self-Care Reason For Visit: CELLULITIS Discharge Diagnosis: Right lower leg cellulitis Activity: Resume your previous activity Non-emergency contact: Primary Care Provider Call non-emergency contact if: you have any medication questions and your symptoms worsen Follow-up/Referrals: Joselito Che MD [Primary Care Provider] - (Date & Time 02/06/2023 3:00 PM Provider Joselito Che MD [facility] ) Diet: Regular Addtl Attending Provider Instructions: You were admitted to the hospital with right lower leg cellulitis. You were treated with IV antibiotic during your hospitalization. You are prescribed linezolid 600 mg twice daily for 14 more days starting tomorrow. An appointment will be set up for you with your primary care doctor later this week or early next week. Pending Studies at Discharge: No Stand-Alone Forms: My [facility] [employer], Smoking Cessation Medications and DC Order Prescriptions: New linezolid 600 mg tablet 600 mg PO BID 14 Days Qty: 28 0RF Continued gabapentin 800 mg tablet 800 mg PO TID amlodipine 10 mg tablet 10 mg PO QAM montelukast 10 mg tablet 10 mg PO QAM fluticasone propionate [Flovent HFA] 220 mcg/actuation HFA aerosol inhaler 1 inh INHALATION BID PRN (Reason: Shortness Of Breath Or Wheezing) azelastine 137 mcg (0.1 %) aerosol,spray 1 spray INTRANASAL DAILY PRN (Reason: Nasal Congestion) albuterol sulfate [ProAir HFA] 90 mcg/actuation HFA aerosol inhaler 1 inh INHALATION Q6 PRN (Reason: Shortness Of Breath Or Wheezing) famotidine 20 mg tablet 20 mg PO BID pantoprazole 40 mg Tablet,Delayed Release (Dr/Ec) 40 mg PO QAM lisinopril 20 mg tablet 20 mg PO DAILY levocetirizine 5 mg tablet 5 mg PO QPM hydroxyzine HCl 25 mg Tablet 25 mg PO Q6H PRN (Reason: Itching) fluticasone propionate [Flonase] 50 mcg/actuation Gregory,Suspension 1 spray INTRANASAL DAILY PRN (Reason: Allergy Symptoms) Rx Instructions: administer into each nostril Discharge Orders: Discharge Order (Routine); Ordered 01/31/23 Ordered By: Juanjose Garrett Admission Data Admit Date/Time: 01/28/23 17:37 Attending Provider: Juanjose Garrett Admit Provider: Desmond Sylvester Primary Care Provider: Joselito Che Other Providers: Kristina Urena ; John Jain ; Santa Ferrari ; Rodney Islas I. ; Bill Cochran II ; Bianca Chen ; Joselito Fairbanks ; Nirmal Gamez ; Farzad Smith
[2023-02-01] MEDS ORDERED: VANCOMYCIN LEVEL ONE (04:00)
== END 2023-01-31 18:40 | disposition home or self-care (01) | DRG 872 ==
LOC: ED 16:06 → SUATTDRO 17:37 → 2N 17:37

== ENCOUNTER 2023-02-01 22:09 | Inpatient (IN) ==
[2023-02-01 23:26] LABS: Basophils # (auto) 0.12 K/uL (0-0.2); Basophils % (auto) 0.6 %; Eosinophils # (auto) 0.62 K/uL (0-0.50); Eosinophils % (auto) 3.1 %; Hematocrit (blood only) 38.6 % (42.0-52.0); Hemoglobin 13.4 g/dl (14.0-18.0); Immature Granulocytes # (auto) 0.49 K/uL (0.01-0.20); Immature Granulocytes % (auto) 2.5 %; Lymphocytes # (auto) 2.36 K/uL (1.2-3.4); Lymphocytes % (auto) 11.8 %; Mean Corpuscular Hemoglobin 30.4 pg (25.0-34.0); Mean Corpuscular Hgb Conc 34.7 g/dL (32.0-36.0); Mean Corpuscular Volume 87.5 fL (80.0-100.0); Mean Platelet Volume 11.6 fL (9.4-12.4); Monocytes # (auto) 2.41 K/uL (0.11-0.59); Monocytes % (auto) 12.1 %; Neutrophils # (auto) 13.93 K/uL (1.40-6.50); Neutrophils % (auto) 69.9 %; Platelet Count 279 K/uL (130-400); RDW Coefficient of Variation 14.5 % (11.5-14.5); RDW Standard Deviation 46.5 fL (36.4-46.3); Red Blood Count 4.41 M/uL (4.70-6.10); White Blood Count 19.93 K/ul (4.8-10.8)
[2023-02-01 23:38] LABS: Albumin Globulin Ratio 0.9 (0.9-2); Albumin Level 3.6 gm/dl (3.4-5.0); BUN Creatinine Ratio 13.5 (10-20); Bilirubin,Total 0.8 mg/dl (0.2-1.0); Calcium 8.4 mg/dl (8.5-10.1); Creatinine Clr Calc Pharmacy 91.5 ml/min; Est GFR (African American) 95.1 ml/min; Potassium 3.3 mmol/L (3.5-5.1); Total Protein 7.6 gm/dl (6.0-8.3)
--- NOTE | 2023-02-02 02:20 | History and Physical Report ---
DATE OF ADMISSION: 02/01/2023. dictated in ERROR. Thanks Job ID: [id number] MTDD
--- NOTE | 2023-02-02 03:25 | History and Physical Report ---
DATE OF ADMISSION: 02/01/2023. CHIEF COMPLAINT: Right lower extremity cellulitis, early sepsis. HISTORY OF PRESENT ILLNESS: This is a 42-year-old male with past medical history significant for hypertension, right lower extremity lymphedema, ongoing tobacco abuse, GERD, obesity, bronchitis, presents with right lower extremity cellulitis. The patient was here recently in the hospital for right lower extremity cellulitis, discharge was on 01/31/2023 with PO Zyvox. In the hospital initially treated with daptomycin and Zosyn, which was changed to vancomycin and Zosyn. Infectious Disease recommended Zyvox for 14 days. The patient states going home his redness below the knee is okay, but started developing redness and swelling in the thigh region, which worried and came to the ER. In the ER, labs showed white count went up from 15 to 19, procalcitonin high at 1.7. The patient denies any fevers, says has pain in right leg when he stands up, but is able to ambulate.Had diarrhea three episodes. Denies any blood in the stools. Normal bladder movements. No burning micturitions. No hematuria. No chest pain, no runny nose or shortness of breath. Has smoker's cough. No nausea, no abdominal pain. Appetite is okay. Currently, no headache, no blurred visions, no runny nose, no sore throat, hemodynamically stable. ALLERGIES: OMEPRAZOLE. PAST MEDICAL HISTORY: As mentioned above. PAST SURGICAL HISTORY: Cholecystectomy, tooth extraction, history of fracture of the femur. MEDICATIONS: Albuterol 1 puff inhalation q. 6 hours p.r.n., amlodipine 10 mg p.o. daily, azelastine 1 spray intranasal daily p.r.n., famotidine 20 mg p.o. b.i.d., Flonase 1 spray intranasal daily p.r.n., Flovent 1 inhalation b.i.d. p.r.n., gabapentin 800 mg p.o. t.i.d., hydroxyzine 25 mg p.o. q. 6 hours p.r.n. for itching, levocetirizine 5 mg p.o. 8 p.m., linezolid 600 mg p.o. b.i.d., lisinopril 20 mg p.o. daily, montelukast 10 mg p.o. daily, Protonix 40 mg p.o. daily. FAMILY HISTORY: Significant for mother had diabetes, father has diabetes. SOCIAL HISTORY: Smokes 1 pack cigarette daily. No alcohol use. No drug use. REVIEW OF SYSTEMS: As per HPI. Rest of review of systems is negative. PHYSICAL EXAMINATION: GENERAL: The patient is obese, not in acute distress. VITAL SIGNS: Temperature 37.8, pulse 104, respiratory rate 15, blood pressure 121/82, oxygen 98% on room air. HEENT: Pupils equal, round and reactive to light. Oral mucosa moist. NECK: No JVD, no neck masses. CARDIOVASCULAR: S1 and S2 heard. Regular rate and rhythm. No murmur, no gallop. RESPIRATORY SYSTEM: Normal AP diameter. No accessory muscle use. No wheezing, no crackles. ABDOMEN: Soft, bowel sounds present, nontender, no distention. CENTRAL NERVOUS SYSTEM: Cranial nerves II through XII are grossly intact, nonfocal. EXTREMITIES: Right lower extremity erythematous from thigh to foot, on the nettles weeping seen. LABORATORY DATA: WBC 19, hemoglobin 13.4, hematocrit 38.6, platelets 279. ESR greater than 130. Sodium 140, potassium 3.3, chloride 107, bicarbonate 22, BUN 15, creatinine 1.1, serum glucose 110. Lactate 1, calcium 8.4, total bilirubin 0.8, AST 51, ALT 70, alkaline phosphatase 157. Procalcitonin 1.7. ASSESSMENT AND PLAN: This is a 42-year-old male who presents with right lower extremity cellulitis. 1. Right lower extremity cellulitis, possible early sepsis . Recently in hospital which was treated with Zosyn and vancomycin, discharged on Zyvox. Currently comes with worsening erythema on to the thigh. Empirically placed on vancomycin and cefepime. Follow the cultures. Follow the response. Will rule out DVT with Dopplers. 2. History of hypertension: Continue lisinopril. 3. Tobacco abuse. Continue Nicotine Gums p.r.n. 4. Gastroesophageal reflux disease. On famotidine. 5. Deep venous thrombosis prophylaxis: Lovenox. DISPOSITION: Admit to [facility]. PT/OT prior to discharge. Social service to help with discharge planning. Job ID: [id number] [facility]
[2023-02-02] MEDS ORDERED: NICOTINE POLACRILEX 2 MG GUM MT PRN (03:42)
[2023-02-02] MEDS ORDERED: SODIUM CHLORIDE 0.9% 1000ML 1,000 ML IV SCH (03:42)
[2023-02-02] MEDS ORDERED: AZELASTINE HCL 0.1% NASAL 200 SPRAYS/27,400 MCG BTL PRN (03:42)
[2023-02-02] MEDS ORDERED: ALBUTEROL HFA 8 GM INHALER INH PRN (03:42)
[2023-02-02] MEDS ORDERED: hydrOXYzine HCl 25 MG TAB PO PRN (03:42)
[2023-02-02] MEDS ORDERED: VANCOMYCIN CONSULT ACTIVE PRN (03:42)
[2023-02-02] MEDS ORDERED: FLUTICASONE PROPIONATE NA SPR 16 GM BTL PRN (03:42)
[2023-02-02] MEDS ORDERED: NITROGLYCERIN SL 0.4 MG/TAB TAB SL PRN (03:42)
[2023-02-02] MEDS ORDERED: VANCOMYCIN HCL 2,000 MG in SODIUM CHLORIDE 0.9% 500 ML IV ONE (04:00)
[2023-02-02] MEDS ORDERED: FLUTICASONE FUROATE 100MCG 14 PUFFS/INHALER INH PRN (04:14)
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
[2023-02-02] MEDS ORDERED: CEFEPIME 2,000 MG in SYRINGE 0 ML IV SCH (06:00)
--- NOTE | 2023-02-02 07:20 | Ultrasound Report ---
US soft tissue groin CLINICAL HISTORY: lymphadenopathy COMPARISON STUDY: Right leg venous Doppler 01/28/2023. FINDINGS: Real-time sonographic imaging of the right inguinal region was performed with representativ e images submitted. There are few prominent right inguinal lymph nodes with the largest measuring 2.0 x 1.7 x 0.9 cm. This is similar to the prior study when it measured 1.8 x 1.1 x 1.5 cm. This demonst rates a normal fatty hilum and a slightly thickened cortex. IMPRESSION: Similar-appearing mildly enlarged right inguinal lymph node. This may be reactive. ACT 112: Negative or not required by law. Electronically signed by: Ezra Daugherty M.D. 02/02/2023 7:19 AM
--- NOTE | 2023-02-02 07:20 | Ultrasound Report ---
RIGHT LOWER EXTREMITY VENOUS DOPPLER HISTORY: right lower ext edema and erythema. dvt? COMPARISON STUDY: None. FINDINGS: There is normal compressibility, flow, and augmentation within the right lower extremity de ep venous system. IMPRESSION: No DVT within the right lower extremity ACT 112: Negative or not required by law. Electronically signed by: Ezra Daugherty M.D. 02/02/2023 7:17 AM
[2023-02-02] MEDS: lisinopril 20 MG TAB PO SCH (07:53)
[2023-02-02] MEDS: MONTELUKAST SODIUM 10 MG TABLET PO SCH (07:53)
[2023-02-02] MEDS: ADVANCED PROBIOTIC 1250 MG CAPSULE PO SCH ×2 (07:53→21:11)
[2023-02-02] MEDS: PANTOprazole 40 MG TAB PO SCH (07:53)
[2023-02-02] MEDS: GABAPENTIN 800 MG TAB PO SCH ×3 (07:53→21:11)
[2023-02-02] MEDS: ENOXAPARIN INJ 40 MG/0.4 ML SYR SQ SCH (07:54)
[2023-02-02] MEDS: FAMOTIDINE 20 MG TAB PO SCH ×2 (07:54→21:11)
[2023-02-02] MEDS: amLODIPine BESYLATE 5 MG TAB PO SCH (07:54)
[2023-02-02] MEDS ORDERED: POTASSIUM CHLORIDE CRTAB 20 MEQ TABCR PO STA (10:31)
--- NOTE | 2023-02-02 11:11 | Pharmacy Report ---
Pharmacy PK ABX Note - Date of Service February 02, 2023 - Assessment and Plan Assessment 42 year old M receiving Vancomycin for treatment of right lower extremity cellulitis. * Low grade fever upon admission, since resolved. White count of 20k. ESR > 130. Imaging negative. History of lymphedema. * Blood cultures pending. Plan Vancomycin * Loading dose: 2000 mg IV x 1 * Maintenance dose: 1250 mg IV every 12 hours * Regimen is predicted to achieve target AUC/NITIN of 400-600 mg/L.hr * Random level ordered for: 02/04/23 Pharmacy will continue to follow and will adjust dose/frequency as necessary. Thank you. Pharmacy has transitioned to AUC monitoring for vancomycin. AUC/NITIN is the preferred PK/PD target and is associated with decreased risk of nephrotoxicity compared to traditional trough targets.
--- NOTE | 2023-02-02 11:54 | Hospitalist Progress Note ---
Date of Service February 02, 2023 Assessment & Plan (1) Sepsis: (2) Cellulitis of right lower extremity: Plan: Recent admission from 01/28 to 02/16 with right lower extremity cellulitis MRI done during last admission did not show any fluid collection/abscess. Was evaluated by infectious disease; discharged on Zyvox for 14 days. Comes back to the ED as the redness progressed to his knee and upper thigh. Increasing leukocytosis from 15.8-19.9. ESR elevated to greater than 130. Pro-Tomasz elevated Venous duplexno DVT Soft tissue ultrasound of the groin shows lymphadenopathy likely reactive. Plan; -obtain soft tissue ultrasound of the knee to rule out any fluid ricarda ection/septic arthritis -Continue on vancomycin as patient was showing signs of improvement on it last admission. Discontinue cefepime -Follow-up on blood culture. (3) Hypertension: Plan: On amlodipine and lisinopril (4) Tobacco abuse: Plan: Nicotine gum. Counseling provided (5) Morbid obesity: Plan: Counseling done regarding weight loss Plan DVT prophylaxis Lovenox Full code Dispositionfrom home; discharge back home after improvement in the cellulitis. Admission and Anticipated Discharge Date Admission Date: February 02, 2023 Subjective Patient seen and examined at bedside. He is lying in the bed comfortably; not in distress. He reports that he is feeling better overall. Complains that his knee swelling, erythema has increased. Review of Systems Review of Systems: All systems reviewed & are unremarkable except as noted in Subjective Physical Exam Physical Exam: Constitutional: Awake, alert oriented x3; morbidly obese. Not in any distress. Respiratory: normal respiratory effort, lungs clear to auscultation, no wheeze, rales, rhonchi. Normal insp/exp effort, no accessory muscle use Cardiovascular: RRR, no murmur, no edema Vessels: no JVD or carotid bruit Chest: normal inspection of chest Abdomen: normal bowel sounds, soft, nontender, no hepatosplenomegaly Musculoskeletal: Right lower extremity; redness, swelling and erythema present at knee and down below. Serous discharge present in the anterior aspect of the leg. Skin: no rashes, warm and dry normal turgor Neurologic: PERRL, EOMI, accommodation nl, no face palsy, no dysarthria CN's II- XI intact bilaterally and moves all extremities Psychiatric: A+Ox3, euthymic affect Lymphatic: no cervical or axillary lymphadenopathy : deferred Results & Data Results & Data Vital Signs (Past 12 Hours) Vital Signs Temp Pulse Pulse Resp BP Pulse Ox O2 Del Method 02/02/23 11:02 36.8 C 97 H 18 142/89 H 96 Room Air 02/02/23 10:00 112 H 02/02/23 08:02 94 H 02/02/23 07:40 36.7 C 101 H 20 137/81 95 Room Air 02/02/23 07:34 Room Air 02/02/23 04:47 95 H 02/02/23 03:43 36.6 C 95 H 16 105/74 94 Room Air 02/02/23 03:00 89 14 02/02/23 02:30 93 H 16 02/02/23 02:00 86 14 02/02/23 01:30 87 14 02/02/23 01:00 92 H 20 02/02/23 00:30 89 20 02/02/23 00:00 91 H 21 02/02/23 03:14 91 H Laboratory Results Laboratory Results WBC 19.93 K/ul (4.8-10.8) H 02/01/23 23:03 RBC 4.41 M/uL (4.70-6.10) L 02/01/23 23:03 Hgb 13.4 g/dl (14.0-18.0) L 02/01/23 23:03 Hct 38.6 % (42.0-52.0) L 02/01/23 23:03 MCV 87.5 fL (80.0-100.0) 02/01/23 23:03 MCH 30.4 pg (25.0-34.0) 02/01/23 23:03 MCHC 34.7 g/dL (32.0-36.0) 02/01/23 23:03 RDW Std Deviation 46.5 fL (36.4-46.3) H 02/01/23 23:03 RDW Coeff of Florencio 14.5 % (11.5-14.5) 02/01/23 23:03 Plt Count 279 K/uL (130-400) 02/01/23 23:03 MPV 11.6 fL (9.4-12.4) 02/01/23 23:03 Immature Gran % (Auto) 2.5 % 03/15/23 23:03 Neut % (Auto) 69.9 % 02/01/23 23:03 Lymph % (Auto) 11.8 % 02/01/23 23:03 [place] % (Auto) 12.1 % 02/01/23 23:03 Eos % (Auto) 3.1 % 02/01/23 23:03 Baso % (Auto) 0.6 % 02/01/23 23:03 Neut # (Auto) 13.93 K/uL (1.40-6.50) H 02/01/23 23:03 Lymph # (Auto) 2.36 K/uL (1.2-3.4) 02/01/23 23:03 [place] # (Auto) 2.41 K/uL (0.11-0.59) H 02/01/23 23:03 Eos # (Auto) 0.62 K/uL (0-0.50) H 02/01/23 23:03 Baso # (Auto) 0.12 K/uL (0-0.2) 02/01/23 23:03 Immature Gran # (Auto) 0.49 K/uL (0.01-0.20) H 02/01/23 23:03 ESR > 130 mm/hr (0-15) H 02/01/23 23:03 Sodium 140 mmol/L (136-145) 02/01/23 23:03 Potassium 3.3 mmol/L (3.5-5.1) L 02/01/23 23:03 Chloride 107 mmol/L (98-107) 02/01/23 23:03 Carbon Dioxide 22 mmol/L (21-32) 02/01/23 23:03 Anion Gap 11 (3-11) 02/01/23 23:03 BUN 15 mg/dl (6-23) 02/01/23 23:03 Creatinine 1.11 mg/dl (0.6-1.4) 02/01/23 23:03 Est Cr Clr Drug Dosing 91.5 ml/min 02/01/23 23:03 Est GFR ( Amer) 95.1 ml/min 02/01/23 23:03 Est GFR (Non-Af Amer) 82.0 ml/min 02/01/23 23:03 BUN/Creatinine Ratio 13.5 (10-20) 02/01/23 23:03 Glucose 110 mg/dl (70-99(Fasting)) H 02/01/23 23:03 Lactate 1.0 mmol/L (0.4-2.0) 02/01/23 23:03 Calcium 8.4 mg/dl (8.5-10.1) L 02/01/23 23:03 Total Bilirubin 0.8 mg/dl (0.2-1.0) 02/01/23 23:03 AST 51 U/L (13-39) H 02/01/23 23:03 ALT 70 U/L (7-52) H 02/01/23 23:03 Alkaline Phosphatase 157 U/L (34-104) H 02/01/23 23:03 Total Protein 7.6 gm/dl (6.0-8.3) 02/01/23 23:03 Albumin 3.6 gm/dl (3.4-5.0) 02/01/23 23:03 Globulin 4.0 gm/dl (2.5-4.0) 02/01/23 23:03 Albumin/Globulin Ratio 0.9 (0.9-2) 02/01/23 23:03 Procalcitonin 1.77 ng/ml (0-0.5) H 02/01/23 23:03 Nasal Screen MRSA (PCR) Negative (Negative) 02/02/23 03:30 SARS-CoV-2, RNA, NAAT NEGATIVE (NEGATIVE) 02/02/23 02:25 Impressions Venous Doppler Study 02/02/23 03:42 RIGHT LOWER EXTREMITY VENOUS DOPPLER HISTORY: right lower ext edema and erythema. dvt? COMPARISON STUDY: None. FINDINGS: There is normal compressibility, flow, and augmentation within the right lower extremity deep venous system. IMPRESSION: No DVT within the right lower extremity ACT 112: Negative or not required by law. Electronically signed by: Ezra Daugherty M.D. 02/02/2023 7:17 AM (1) Sepsis Sepsis acute organ dysfunction status: without acute organ dysfunction Sepsis type: sepsis due to unspecified organism Qualified Code(s): A41.9 - Sepsis, unspecified organism
--- NOTE | 2023-02-02 12:03 | Ultrasound Report ---
US soft tissue ext ltd CLINICAL HISTORY: right knee ultrasound. Assess for fluid collection COMPARISON STUDY: Right lower leg CT 01/30/2023. FINDINGS: Real-time sonographic imaging of the right knee was performed with contact center representative images osorio bmitted. There is extensive subcutaneous edema with increased echogenicity within the subcutaneous fa t. This is similar to the prior CT examination. No loculated fluid collections at this time to sugges t an abscess. IMPRESSION: Extensive subcutaneous edema and increased echogenicity within the subcutaneous fat at t he right knee. This favors a cellulitis. ACT 112: Negative or not required by law. Electronically signed by: Ezra Daugherty M.D. 02/02/2023 12:02 PM
[2023-02-02] MEDS: ACETAMINOPHEN 325 MG TAB PO PRN ×2 (13:44→19:30)
[2023-02-02] MEDS: VANCOMYCIN HCL 1,250 MG in SODIUM CHLORIDE 0.9% 250 ML IV SCH (18:36)
[2023-02-02] MEDS: CETIRIZINE HCL 10 MG TABLET PO SCH (21:11)
[2023-02-03] MEDS: VANCOMYCIN HCL 1,250 MG in SODIUM CHLORIDE 0.9% 250 ML IV SCH ×2 (05:59→18:26)
[2023-02-03 08:13] LABS: Basophils # (auto) 0.16 K/uL (0-0.2); Basophils % (auto) 0.7 %; Eosinophils # (auto) 0.99 K/uL (0-0.50); Eosinophils % (auto) 4.5 %; Hematocrit (blood only) 35.1 % (42.0-52.0); Immature Granulocytes # (auto) 0.87 K/uL (0.01-0.20); Lymphocytes # (auto) 3.28 K/uL (1.2-3.4); Mean Corpuscular Hemoglobin 30.4 pg (25.0-34.0); Mean Corpuscular Hgb Conc 34.2 g/dL (32.0-36.0); Mean Corpuscular Volume 88.9 fL (80.0-100.0); Mean Platelet Volume 11.2 fL (9.4-12.4); Monocytes # (auto) 2.16 K/uL (0.11-0.59); Monocytes % (auto) 9.9 %; Neutrophils # (auto) 14.38 K/uL (1.40-6.50); Neutrophils % (auto) 65.9 %; Platelet Count 356 K/uL (130-400); RDW Coefficient of Variation 14.9 % (11.5-14.5); RDW Standard Deviation 48.3 fL (36.4-46.3); Red Blood Count 3.95 M/uL (4.70-6.10); White Blood Count 21.84 K/ul (4.8-10.8)
[2023-02-03] MEDS: ENOXAPARIN INJ 40 MG/0.4 ML SYR SQ SCH (08:16)
[2023-02-03] MEDS: FAMOTIDINE 20 MG TAB PO SCH ×2 (08:16→21:08)
[2023-02-03] MEDS: amLODIPine BESYLATE 5 MG TAB PO SCH (08:16)
[2023-02-03] MEDS: GABAPENTIN 800 MG TAB PO SCH ×3 (08:16→21:09)
[2023-02-03] MEDS: lisinopril 20 MG TAB PO SCH (08:17)
[2023-02-03] MEDS: ADVANCED PROBIOTIC 1250 MG CAPSULE PO SCH ×2 (08:17→21:08)
[2023-02-03] MEDS: PANTOprazole 40 MG TAB PO SCH (08:17)
[2023-02-03] MEDS: MONTELUKAST SODIUM 10 MG TABLET PO SCH (08:17)
[2023-02-03 08:44] LABS: Albumin Globulin Ratio 0.9 (0.9-2); Albumin Level 3.1 gm/dl (3.4-5.0); BUN Creatinine Ratio 11.8 (10-20); Bilirubin,Total 0.5 mg/dl (0.2-1.0); Calcium 7.7 mg/dl (8.5-10.1); Creatinine Clr Calc Pharmacy 122.8 ml/min; Est GFR (African American) 125.4 ml/min; Est GFR (Non-African American) 108.2 ml/min; Globulin 3.5 gm/dl (2.5-4.0); Potassium 3.5 mmol/L (3.5-5.1); Total Protein 6.6 gm/dl (6.0-8.3)
--- NOTE | 2023-02-03 12:57 | Hospitalist Progress Note ---
Date of Service February 03, 2023 Assessment & Plan (1) Sepsis: (2) Cellulitis of right lower extremity: Plan: Recent admission from 01/28 to 02/16 with right lower extremity cellulitis MRI done during last admission did not show any fluid collection/abscess. Was evaluated by infectious disease; discharged on Zyvox for 14 days. Comes back to the ED as the redness progressed to his knee and upper thigh. Leukocytosis +nt ESR elevated to greater than 130. Pro-Tomasz elevated Venous duplexno DVT Soft tissue ultrasound of the groin shows lymphadenopathy likely reactive. Soft tissue USG knee- negative. Plan; -Discussed with infectious disease regarding failure of oral treatment. Recommend IV vancomycin for total of 14 days. Will discuss with pharmacy regarding the dosing of vancomycin. Plan to discharge him on IV vancomycin for total of 14 days till February 10. Social service on board for arrangement of home health. (3) Hypertension: Plan: On amlodipine and lisinopril (4) Tobacco abuse: Plan: Nicotine gum. Counseling provided (5) Morbid obesity: Plan: Counseling done regarding weight loss Plan DVT prophylaxis Lovenox Full code Dispositionfrom home; continues to be hospitalized for Cellulitis of RLE requiring IV antibiotics. Admission and Anticipated Discharge Date Admission Date: February 02, 2023 Subjective Patient seen and examined at bedside. He reports that redness, swelling has improved compared to previous day. Review of Systems Review of Systems: All systems reviewed & are unremarkable except as noted in Subjective Physical Exam 2 Physical Exam: Constitutional: Awake, alert oriented x3; morbidly obese. Not in any distress. Respiratory: normal respiratory effort, lungs clear to auscultation, no wheeze, rales, rhonchi. Normal insp/exp effort, no accessory muscle use Cardiovascular: RRR, no murmur, no edema Vessels: no JVD or carotid bruit Chest: normal inspection of chest Abdomen: normal bowel sounds, soft, nontender, no hepatosplenomegaly Musculoskeletal: RLE extremity swelling, redness decreased. Skin: no rashes, warm and dry normal turgor Neurologic: PERRL, EOMI, accommodation nl, no face palsy, no dysarthria CN's II- XI intact bilaterally and moves all extremities Psychiatric: A+Ox3, euthymic affect Lymphatic: no cervical or axillary lymphadenopathy : deferred Results & Data Results & Data Vital Signs (Past 12 Hours) Vital Signs Temp Pulse Resp BP BP Pulse Ox O2 Del Method 02/03/23 11:05 37.5 C 106 H 18 124/65 95 Room Air 02/03/23 08:00 36.8 C 101 H 22 120/77 95 Room Air 02/03/23 03:25 36.7 C 98 H 18 124/78 95 Room Air Laboratory Results Laboratory Results WBC 21.84 K/ul (4.8-10.8) H 02/03/23 07:43 RBC 3.95 M/uL (4.70-6.10) L 02/03/23 07:43 Hgb 12.0 g/dl (14.0-18.0) L 02/03/23 07:43 Hct 35.1 % (42.0-52.0) L 02/03/23 07:43 MCV 88.9 fL (80.0-100.0) 02/03/23 07:43 MCH 30.4 pg (25.0-34.0) 02/03/23 07:43 MCHC 34.2 g/dL (32.0-36.0) 02/03/23 07:43 RDW Std Deviation 48.3 fL (36.4-46.3) H 02/03/23 07:43 RDW Coeff of Florencio 14.9 % (11.5-14.5) H 02/03/23 07:43 Plt Count 356 K/uL (130-400) 02/03/23 07:43 MPV 11.2 fL (9.4-12.4) 02/03/23 07:43 Immature Gran % (Auto) 4.0 % 02/03/23 07:43 Neut % (Auto) 65.9 % 02/03/23 07:43 Lymph % (Auto) 15.0 % 02/03/23 07:43 [place] % (Auto) 9.9 % 02/03/23 07:43 Eos % (Auto) 4.5 % 02/03/23 07:43 Baso % (Auto) 0.7 % 02/03/23 07:43 Neut # (Auto) 14.38 K/uL (1.40-6.50) H 02/03/23 07:43 Lymph # (Auto) 3.28 K/uL (1.2-3.4) 02/03/23 07:43 [place] # (Auto) 2.16 K/uL (0.11-0.59) H 02/03/23 07:43 Eos # (Auto) 0.99 K/uL (0-0.50) H 02/03/23 07:43 Baso # (Auto) 0.16 K/uL (0-0.2) 02/03/23 07:43 Immature Gran # (Auto) 0.87 K/uL (0.01-0.20) H 02/03/23 07:43 ESR > 130 mm/hr (0-15) H 02/01/23 23:03 Sodium 139 mmol/L (136-145) 02/03/23 07:43 Potassium 3.5 mmol/L (3.5-5.1) 02/03/23 07:43 Chloride 108 mmol/L (98-107) H 02/03/23 07:43 Carbon Dioxide 24 mmol/L (21-32) 02/03/23 07:43 Anion Gap 7 (3-11) 02/03/23 07:43 BUN 10 mg/dl (6-23) 02/03/23 07:43 Creatinine 0.85 mg/dl (0.6-1.4) 02/03/23 07:43 Est Cr Clr Drug Dosing 122.8 ml/min 02/03/23 07:43 Est GFR ( Amer) 125.4 ml/min 02/03/23 07:43 Est GFR (Non-Af Amer) 108.2 ml/min 02/03/23 07:43 BUN/Creatinine Ratio 11.8 (10-20) 02/03/23 07:43 Glucose 112 mg/dl (70-99(Fasting)) H 02/03/23 07:43 Lactate 1.0 mmol/L (0.4-2.0) 02/01/23 23:03 Calcium 7.7 mg/dl (8.5-10.1) L 02/03/23 07:43 Total Bilirubin 0.5 mg/dl (0.2-1.0) 02/03/23 07:43 AST 28 U/L (13-39) 02/03/23 07:43 ALT 53 U/L (7-52) H 02/03/23 07:43 Alkaline Phosphatase 117 U/L (34-104) H 02/03/23 07:43 Total Protein 6.6 gm/dl (6.0-8.3) 02/03/23 07:43 Albumin 3.1 gm/dl (3.4-5.0) L 02/03/23 07:43 Globulin 3.5 gm/dl (2.5-4.0) 02/03/23 07:43 Albumin/Globulin Ratio 0.9 (0.9-2) 02/03/23 07:43 Procalcitonin 1.77 ng/ml (0-0.5) H 02/01/23 23:03 Nasal Screen MRSA (PCR) Negative (Negative) 02/02/23 03:30 Stl C. diff Tox B Gene Negative Cdiff Gene (Neg) 02/02/23 13:18 SARS-CoV-2, RNA, NAAT NEGATIVE (NEGATIVE) 02/02/23 02:25 Impressions Venous Doppler Study 02/02/23 03:42 RIGHT LOWER EXTREMITY VENOUS DOPPLER HISTORY: right lower ext edema and erythema. dvt? COMPARISON STUDY: None. FINDINGS: There is normal compressibility, flow, and augmentation within the right lower extremity deep venous system. IMPRESSION: No DVT within the right lower extremity ACT 112: Negative or not required by law. Electronically signed by: Ezra Daugherty M.D. 02/02/2023 7:17 AM Soft Tissue Ultrasound 02/02/23 10:12 US soft tissue ext ltd CLINICAL HISTORY: right knee ultrasound. Assess for fluid collection COMPARISON STUDY: Right lower leg CT 01/30/2023. FINDINGS: Real-time sonographic imaging of the right knee was performed with bilingual call center representative images submitted. There is extensive subcutaneous edema with increased echogenicity within the subcutaneous fat. This is similar to the prior CT examination. No loculated fluid collections at this time to suggest an abscess. IMPRESSION: Extensive subcutaneous edema and increased echogenicity within the subcutaneous fat at the right knee. This favors a cellulitis. ACT 112: Negative or not required by law. Electronically signed by: Ezra Daugherty M.D. 02/02/2023 12:02 PM (1) Sepsis Sepsis acute organ dysfunction status: without acute organ dysfunction Sepsis type: sepsis due to unspecified organism Qualified Code(s): A41.9 - Sepsis, unspecified organism
[2023-02-03] MEDS: CETIRIZINE HCL 10 MG TABLET PO SCH (21:09)
[2023-02-04] MEDS: ACETAMINOPHEN 325 MG TAB PO PRN ×3 (00:05→20:31)
[2023-02-04] MEDS ORDERED: VANCOMYCIN LEVEL ONE (05:30)
[2023-02-04 06:35] LABS: Basophils # (auto) 0.16 K/uL (0-0.2); Basophils % (auto) 0.7 %; Eosinophils # (auto) 0.69 K/uL (0-0.50); Eosinophils % (auto) 3.2 %; Hematocrit (blood only) 36.9 % (42.0-52.0); Hemoglobin 12.5 g/dl (14.0-18.0); Immature Granulocytes # (auto) 0.77 K/uL (0.01-0.20); Immature Granulocytes % (auto) 3.6 %; Lymphocytes # (auto) 3.36 K/uL (1.2-3.4); Lymphocytes % (auto) 15.6 %; Mean Corpuscular Hemoglobin 30.3 pg (25.0-34.0); Mean Corpuscular Hgb Conc 33.9 g/dL (32.0-36.0); Mean Corpuscular Volume 89.3 fL (80.0-100.0); Mean Platelet Volume 11.5 fL (9.4-12.4); Monocytes # (auto) 2.11 K/uL (0.11-0.59); Monocytes % (auto) 9.8 %; Neutrophils # (auto) 14.47 K/uL (1.40-6.50); Neutrophils % (auto) 67.1 %; Platelet Count 330 K/uL (130-400); RDW Coefficient of Variation 15.2 % (11.5-14.5); RDW Standard Deviation 49.6 fL (36.4-46.3); Red Blood Count 4.13 M/uL (4.70-6.10); White Blood Count 21.56 K/ul (4.8-10.8)
[2023-02-04 07:18] LABS: Bilirubin,Total 0.4 mg/dl (0.2-1.0); Calcium 7.7 mg/dl (8.5-10.1); Potassium 3.5 mmol/L (3.5-5.1)
[2023-02-04 07:24] LABS: Albumin Globulin Ratio 0.8 (0.9-2); BUN Creatinine Ratio 14.4 (10-20); Est GFR (African American) 122.5 ml/min; Est GFR (Non-African American) 105.7 ml/min; Globulin 3.7 gm/dl (2.5-4.0); Total Protein 6.7 gm/dl (6.0-8.3)
[2023-02-04] MEDS: VANCOMYCIN HCL 1,250 MG in SODIUM CHLORIDE 0.9% 250 ML IV SCH ×3 (07:39→22:13)
--- NOTE | 2023-02-04 09:49 | Pharmacy Report ---
Pharmacy PK ABX Note - Date of Service February 04, 2023 - Assessment and Plan Assessment 02/04: White count stagnant. Blood cultures negative to date. Per Hospitalist note/ID discussion plan to continue vancomycin x 14 days. Trough this AM predicting below target AUC/NITIN. Will adjust dose. 42 year old M receiving Vancomycin for treatment of right lower extremity cellulitis. * Low grade fever upon admission, since resolved. White count of 20k. ESR > 130. Imaging negative. History of lymphedema. * Blood cultures pending. Plan 02/04 * Trough 7.0; * Adjust regimen to 1250 mg IV every 8 hours * This regimen predicts an AUC/NITIN of 540 mg/L.hr * Will obtain level tomorrow prior to 0600 dose. Vancomycin * Loading dose: 2000 mg IV x 1 * Maintenance dose: 1250 mg IV every 12 hours * Regimen is predicted to achieve target AUC/NITIN of 400-600 mg/L.hr * Random level ordered for: 02/04/23 Pharmacy will continue to follow and will adjust dose/frequency as necessary. Thank you. Pharmacy has transitioned to AUC monitoring for vancomycin. AUC/NITIN is the preferred PK/PD target and is associated with decreased risk of nephrotoxicity compared to traditional trough targets.
[2023-02-04] MEDS: ADVANCED PROBIOTIC 1250 MG CAPSULE PO SCH ×2 (09:57→20:28)
[2023-02-04] MEDS: FAMOTIDINE 20 MG TAB PO SCH ×2 (09:57→20:28)
[2023-02-04] MEDS: ENOXAPARIN INJ 40 MG/0.4 ML SYR SQ SCH (09:57)
[2023-02-04] MEDS: GABAPENTIN 800 MG TAB PO SCH ×3 (09:57→20:28)
[2023-02-04] MEDS: MONTELUKAST SODIUM 10 MG TABLET PO SCH (09:57)
[2023-02-04] MEDS: amLODIPine BESYLATE 5 MG TAB PO SCH (09:58)
[2023-02-04] MEDS: lisinopril 20 MG TAB PO SCH (09:58)
[2023-02-04] MEDS: PANTOprazole 40 MG TAB PO SCH (09:58)
--- NOTE | 2023-02-04 14:07 | Hospitalist Progress Note ---
Date of Service February 04, 2023 Assessment & Plan (1) Sepsis: (2) Cellulitis of right lower extremity: Plan: Recent admission from 01/28 to 02/16 with right lower extremity cellulitis MRI done during last admission did not show any fluid collection/abscess. Was evaluated by infectious disease; discharged on Zyvox for 14 days. Comes back to the ED as the redness progressed to his knee and upper thigh. Leukocytosis +nt ESR elevated to greater than 130. Pro-Tomasz elevated Venous duplexno DVT Soft tissue ultrasound of the groin shows lymphadenopathy likely reactive. Soft tissue USG knee- negative for any effusion. Plan; -Discussed with infectious disease regarding failure of oral treatment. Recommend IV vancomycin for total of 14 days. Initially patient was prescribed vancomycin 1250 mg twice daily as per pharmacy recommendation. Random vancomycin level was found to be subtherapeutic. Discussed with pharmacy again; recommended to increase the dose to 1500 mg twice daily. New prescription given to social service technician. Patient to be discharged home when home health is set up for the antibiotics. The antibiotics will be till February 10 to complete 14-day course. (3) Hypertension: Plan: On amlodipine and lisinopril (4) Tobacco abuse: Plan: Nicotine gum. Counseling provided (5) Morbid obesity: Plan: Counseling done regarding weight loss Plan DVT prophylaxis Lovenox Full code Dispositionfrom home; continues to be hospitalized for Cellulitis of RLE requiring IV antibiotics. Awaiting home health arrangement for IV antibiotics at home. Admission and Anticipated Discharge Date Admission Date: February 02, 2023 Subjective Patient seen and examined at bedside. He reports improvement in swelling and redness. No fever overnight. Review of Systems Review of Systems: All systems reviewed & are unremarkable except as noted in Subjective Physical Exam Physical Exam: Constitutional: Awake, alert oriented x3; morbidly obese. Not in any distress. Respiratory: normal respiratory effort, lungs clear to auscultation, no wheeze, rales, rhonchi. Normal insp/exp effort, no accessory muscle use Cardiovascular: RRR, no murmur, no edema Vessels: no JVD or carotid bruit Chest: normal inspection of chest Abdomen: normal bowel sounds, soft, nontender, no hepatosplenomegaly Musculoskeletal: RLE extremity swelling, redness decreased. Wrapped with Kerlix. Skin: no rashes, warm and dry normal turgor Neurologic: PERRL, EOMI, accommodation nl, no face palsy, no dysarthria CN's II- XI intact bilaterally and moves all extremities Psychiatric: A+Ox3, euthymic affect Lymphatic: no cervical or axillary lymphadenopathy : deferred Results & Data Results & Data Vital Signs (Past 12 Hours) Vital Signs Temp Pulse Resp BP Pulse Ox O2 Del Method 02/04/23 10:33 100 H 118/74 96 Room Air 02/04/23 07:22 36.8 C 93 H 20 101/67 95 Room Air Laboratory Results Laboratory Results WBC 21.56 K/ul (4.8-10.8) H 02/04/23 06:06 RBC 4.13 M/uL (4.70-6.10) L 02/04/23 06:06 Hgb 12.5 g/dl (14.0-18.0) L 02/04/23 06:06 Hct 36.9 % (42.0-52.0) L 02/04/23 06:06 MCV 89.3 fL (80.0-100.0) 02/04/23 06:06 MCH 30.3 pg (25.0-34.0) 02/04/23 06:06 MCHC 33.9 g/dL (32.0-36.0) 02/04/23 06:06 RDW Std Deviation 49.6 fL (36.4-46.3) H 02/04/23 06:06 RDW Coeff of Florencio 15.2 % (11.5-14.5) H 02/04/23 06:06 Plt Count 330 K/uL (130-400) 02/04/23 06:06 MPV 11.5 fL (9.4-12.4) 02/04/23 06:06 Immature Gran % (Auto) 3.6 % 02/04/23 06:06 Neut % (Auto) 67.1 % 02/04/23 06:06 Lymph % (Auto) 15.6 % 02/04/23 06:06 [place] % (Auto) 9.8 % 02/04/23 06:06 Eos % (Auto) 3.2 % 02/04/23 06:06 Baso % (Auto) 0.7 % 02/04/23 06:06 Neut # (Auto) 14.47 K/uL (1.40-6.50) H 02/04/23 06:06 Lymph # (Auto) 3.36 K/uL (1.2-3.4) 02/04/23 06:06 [place] # (Auto) 2.11 K/uL (0.11-0.59) H 02/04/23 06:06 Eos # (Auto) 0.69 K/uL (0-0.50) H 02/04/23 06:06 Baso # (Auto) 0.16 K/uL (0-0.2) 02/04/23 06:06 Immature Gran # (Auto) 0.77 K/uL (0.01-0.20) H 02/04/23 06:06 ESR > 130 mm/hr (0-15) H 02/01/23 23:03 Sodium 140 mmol/L (136-145) 02/04/23 06:06 Potassium 3.5 mmol/L (3.5-5.1) 02/04/23 06:06 Chloride 109 mmol/L (98-107) H 02/04/23 06:06 Carbon Dioxide 25 mmol/L (21-32) 02/04/23 06:06 Anion Gap 6 (3-11) 02/04/23 06:06 BUN 13 mg/dl (6-23) 02/04/23 06:06 Creatinine 0.90 mg/dl (0.6-1.4) 02/04/23 06:06 Est Cr Clr Drug Dosing 116.0 ml/min 02/04/23 06:06 Est GFR ( Amer) 122.5 ml/min 02/04/23 06:06 Est GFR (Non-Af Amer) 105.7 ml/min 02/04/23 06:06 BUN/Creatinine Ratio 14.4 (10-20) 02/04/23 06:06 Glucose 125 mg/dl (70-99(Fasting)) H 02/04/23 06:06 Lactate 1.0 mmol/L (0.4-2.0) 02/01/23 23:03 Calcium 7.7 mg/dl (8.5-10.1) L 02/04/23 06:06 Total Bilirubin 0.4 mg/dl (0.2-1.0) 02/04/23 06:06 AST 24 U/L (13-39) 02/04/23 06:06 ALT 48 U/L (7-52) 02/04/23 06:06 Alkaline Phosphatase 101 U/L (34-104) 02/04/23 06:06 Total Protein 6.7 gm/dl (6.0-8.3) 02/04/23 06:06 Albumin 3.0 gm/dl (3.4-5.0) L 02/04/23 06:06 Globulin 3.7 gm/dl (2.5-4.0) 02/04/23 06:06 Albumin/Globulin Ratio 0.8 (0.9-2) L 02/04/23 06:06 Procalcitonin 1.77 ng/ml (0-0.5) H 02/01/23 23:03 Nasal Screen MRSA (PCR) Negative (Negative) 02/02/23 03:30 Stl C. diff Tox B Gene Negative Cdiff Gene (Neg) 02/02/23 13:18 Random Vancomycin 7.0 mcg/ml (10-20) L 02/04/23 06:06 SARS-CoV-2, RNA, NAAT NEGATIVE (NEGATIVE) 02/02/23 02:25 Impressions Venous Doppler Study 02/02/23 03:42 RIGHT LOWER EXTREMITY VENOUS DOPPLER HISTORY: right lower ext edema and erythema. dvt? COMPARISON STUDY: None. FINDINGS: There is normal compressibility, flow, and augmentation within the right lower extremity deep venous system. IMPRESSION: No DVT within the right lower extremity ACT 112: Negative or not required by law. Electronically signed by: Ezra Daugherty M.D. 02/02/2023 7:17 AM Soft Tissue Ultrasound 02/02/23 10:12 soft tissue ext ltd CLINICAL HISTORY: right knee ultrasound. Assess for fluid collection COMPARISON STUDY: Right lower leg CT 01/30/2023. FINDINGS: Real-time sonographic imaging of the right knee was performed with scheduling representative images submitted. There is extensive subcutaneous edema with increased echogenicity within the subcutaneous fat. This is similar to the prior CT examination. No loculated fluid collections at this time to suggest an abscess. IMPRESSION: Extensive subcutaneous edema and increased echogenicity within the subcutaneous fat at the right knee. This favors a cellulitis. ACT 112: Negative or not required by law. Electronically signed by: Ezra Daugherty M.D. 02/02/2023 12:02 PM (1) Sepsis Sepsis acute organ dysfunction status: without acute organ dysfunction Sepsis type: sepsis due to unspecified organism Qualified Code(s): A41.9 - Sepsis, unspecified organism
[2023-02-04] MEDS: CETIRIZINE HCL 10 MG TABLET PO SCH (20:28)
[2023-02-05] MEDS ORDERED: VANCOMYCIN LEVEL ONE (05:30)
[2023-02-05 05:59] LABS: Basophils # (auto) 0.14 K/uL (0-0.2); Basophils % (auto) 0.7 %; Eosinophils # (auto) 0.74 K/uL (0-0.50); Eosinophils % (auto) 3.9 %; Immature Granulocytes # (auto) 0.57 K/uL (0.01-0.20); Lymphocytes # (auto) 3.27 K/uL (1.2-3.4); Mean Corpuscular Hemoglobin 29.9 pg (25.0-34.0); Mean Corpuscular Hgb Conc 33.3 g/dL (32.0-36.0); Mean Corpuscular Volume 89.6 fL (80.0-100.0); Monocytes # (auto) 1.77 K/uL (0.11-0.59); Monocytes % (auto) 9.2 %; Neutrophils # (auto) 12.73 K/uL (1.40-6.50); Neutrophils % (auto) 66.2 %; Platelet Count 425 K/uL (130-400); RDW Coefficient of Variation 15.1 % (11.5-14.5); RDW Standard Deviation 49.9 fL (36.4-46.3); Red Blood Count 4.02 M/uL (4.70-6.10); White Blood Count 19.22 K/ul (4.8-10.8)
[2023-02-05 06:13] LABS: Albumin Globulin Ratio 0.8 (0.9-2); Albumin Level 3.1 gm/dl (3.4-5.0); BUN Creatinine Ratio 13.4 (10-20); Bilirubin,Total 0.4 mg/dl (0.2-1.0); Calcium 7.9 mg/dl (8.5-10.1); Creatinine Clr Calc Pharmacy 127.3 ml/min; Est GFR (African American) 127.3 ml/min; Est GFR (Non-African American) 109.8 ml/min; Globulin 3.9 gm/dl (2.5-4.0); Potassium 3.6 mmol/L (3.5-5.1)
[2023-02-05] MEDS: VANCOMYCIN HCL 1,250 MG in SODIUM CHLORIDE 0.9% 250 ML IV SCH ×2 (06:23→14:10)
[2023-02-05] MEDS: lisinopril 20 MG TAB PO SCH (08:33)
[2023-02-05] MEDS: amLODIPine BESYLATE 5 MG TAB PO SCH (08:34)
[2023-02-05] MEDS: GABAPENTIN 800 MG TAB PO SCH ×3 (08:34→20:13)
[2023-02-05] MEDS: ADVANCED PROBIOTIC 1250 MG CAPSULE PO SCH ×2 (08:34→20:13)
[2023-02-05] MEDS: MONTELUKAST SODIUM 10 MG TABLET PO SCH (08:34)
[2023-02-05] MEDS: PANTOprazole 40 MG TAB PO SCH (08:34)
[2023-02-05] MEDS: ACETAMINOPHEN 325 MG TAB PO PRN ×2 (08:35→20:16)
[2023-02-05] MEDS: ENOXAPARIN INJ 40 MG/0.4 ML SYR SQ SCH (08:37)
[2023-02-05] MEDS: FAMOTIDINE 20 MG TAB PO SCH ×2 (12:27→20:13)
--- NOTE | 2023-02-05 12:33 | Hospitalist Progress Note ---
Date of Service February 05, 2023 Assessment & Plan (1) Sepsis: (2) Cellulitis of right lower extremity: Plan: Recent admission from 01/28 to 02/16 with right lower extremity cellulitis MRI done during last admission did not show any fluid collection/abscess. Was evaluated by infectious disease; discharged on Zyvox for 14 days. Comes back to the ED as the redness progressed to his knee and upper thigh. Leukocytosis +nt ESR elevated to greater than 130. Pro-Tomasz elevated Venous duplexno DVT Soft tissue ultrasound of the groin shows lymphadenopathy likely reactive. Soft tissue USG knee- negative for any effusion. Plan; -Discussed with infectious disease regarding failure of oral treatment. Recommend IV vancomycin for total of 14 days. Initially patient was prescribed vancomycin 1250 mg twice daily as per pharmacy recommendation. Random vancomycin level was found to be subtherapeutic. [place]iscussed with pharmacy again; [place] [address] mg twice daily. New prescription given to secondary social studies teacher. Patient to be discharged home when home health is set up for the antibiotics. The antibiotics will be till February 10 to complete 14- day course. (3) Hypertension: Plan: On amlodipine and lisinopril (4) Tobacco abuse: Plan: Nicotine gum. Counseling provided (5) Morbid obesity: Plan: Counseling done regarding weight loss Plan DVT prophylaxis Lovenox Full code Dispositionfrom home; continues to be hospitalized for Cellulitis of RLE requiring IV antibiotics. Awaiting home health arrangement for IV antibiotics at home. DC when home health is available for IV antibiotics. Admission and Anticipated Discharge Date Admission Date: February 02, 2023 Subjective Patient seen and examined at bedside. He remains afebrile; hemodynamically stable. He reports improvement in the swelling in his leg; still continues to report swelling on his knee and thigh. Review of Systems Review of Systems: All systems reviewed & are unremarkable except as noted in Subjective Physical Exam Physical Exam: Constitutional: Awake, alert oriented x3; morbidly obese. Not in any distress. Respiratory: normal respiratory effort, lungs clear to auscultation, no wheeze, rales, rhonchi. Normal insp/exp effort, no accessory muscle use Cardiovascular: RRR, no murmur, no edema Vessels: no JVD or carotid bruit Chest: normal inspection of chest Abdomen: normal bowel sounds, soft, nontender, no hepatosplenomegaly Musculoskeletal: RLE extremity swelling, redness decreased. Wrapped with Kerlix. Swelling present in thigh; slightly improved compared to previous day. Skin: no rashes, warm and dry normal turgor Neurologic: PERRL, EOMI, accommodation nl, no face palsy, no dysarthria CN's II- XI intact bilaterally and moves all extremities Psychiatric: A+Ox3, euthymic affect Lymphatic: no cervical or axillary lymphadenopathy : deferred Results & Data Results & Data Vital Signs (Past 12 Hours) Vital Signs Temp Pulse Resp BP Pulse Ox O2 Del Method 02/05/23 07:44 37.5 C 98 H 18 130/84 94 Room Air Laboratory Results Laboratory Results WBC 19.22 K/ul (4.8-10.8) H 02/05/23 05:26 RBC 4.02 M/uL (4.70-6.10) L 02/05/23 05:26 Hgb 12.0 g/dl (14.0-18.0) L 02/05/23 05:26 Hct 36.0 % (42.0-52.0) L 02/05/23 05:26 MCV 89.6 fL (80.0-100.0) 02/05/23 05:26 MCH 29.9 pg (25.0-34.0) 02/05/23 05:26 MCHC 33.3 g/dL (32.0-36.0) 02/05/23 05:26 RDW Std Deviation 49.9 fL (36.4-46.3) H 02/05/23 05:26 RDW Coeff of Florencio 15.1 % (11.5-14.5) H 02/05/23 05:26 Plt Count 425 K/uL (130-400) H 02/05/23 05:26 MPV 11.0 fL (9.4-12.4) 02/05/23 05:26 Immature Gran % (Auto) 3.0 % 02/05/23 05:26 Neut % (Auto) 66.2 % 02/05/23 05:26 Lymph % (Auto) 17.0 % 02/05/23 05:26 [place] % (Auto) 9.2 % 02/05/23 05:26 Eos % (Auto) 3.9 % 02/05/23 05:26 Baso % (Auto) 0.7 % 02/05/23 05:26 Neut # (Auto) 12.73 K/uL (1.40-6.50) H 02/05/23 05:26 Lymph # (Auto) 3.27 K/uL (1.2-3.4) 02/05/23 05:26 [place] # (Auto) 1.77 K/uL (0.11-0.59) H 02/05/23 05:26 Eos # (Auto) 0.74 K/uL (0-0.50) H 02/05/23 05:26 Baso # (Auto) 0.14 K/uL (0-0.2) 02/05/23 05:26 Immature Gran # (Auto) 0.57 K/uL (0.01-0.20) H 02/05/23 05:26 ESR > 130 mm/hr (0-15) H 02/01/23 23:03 Sodium 140 mmol/L (136-145) 02/05/23 05:26 Potassium 3.6 mmol/L (3.5-5.1) 02/05/23 05:26 Chloride 108 mmol/L (98-107) H 02/05/23 05:26 Carbon Dioxide 25 mmol/L (21-32) 02/05/23 05:26 Anion Gap 7 (3-11) 02/05/23 05:26 BUN 11 mg/dl (6-23) 02/05/23 05:26 Creatinine 0.82 mg/dl (0.6-1.4) 02/05/23 05:26 Est Cr Clr Drug Dosing 127.3 ml/min 02/05/23 05:26 Est GFR ( Amer) 127.3 ml/min 02/05/23 05:26 Est GFR (Non-Af Amer) 109.8 ml/min 02/05/23 05:26 BUN/Creatinine Ratio 13.4 (10-20) 02/05/23 05:26 Glucose 114 mg/dl (70-99(Fasting)) H 02/05/23 05:26 Lactate 1.0 mmol/L (0.4-2.0) 02/01/23 23:03 Calcium 7.9 mg/dl (8.5-10.1) L 02/05/23 05:26 Total Bilirubin 0.4 mg/dl (0.2-1.0) 02/05/23 05:26 AST 28 U/L (13-39) 02/05/23 05:26 ALT 55 U/L (7-52) H 02/05/23 05:26 Alkaline Phosphatase 102 U/L (34-104) 02/05/23 05:26 Total Protein 7.0 gm/dl (6.0-8.3) 02/05/23 05:26 Albumin 3.1 gm/dl (3.4-5.0) L 02/05/23 05:26 Globulin 3.9 gm/dl (2.5-4.0) 02/05/23 05:26 Albumin/Globulin Ratio 0.8 (0.9-2) L 02/05/23 05:26 Procalcitonin 1.77 ng/ml (0-0.5) H 02/01/23 23:03 Nasal Screen MRSA (PCR) Negative (Negative) 02/02/23 03:30 Stl C. diff Tox B Gene Negative Cdiff Gene (Neg) 02/02/23 13:18 Vancomycin Trough 11.4 mcg/ml (10-20) 02/05/23 05:26 Random Vancomycin 7.0 mcg/ml (10-20) L 02/04/23 06:06 SARS-CoV-2, RNA, NAAT NEGATIVE (NEGATIVE) 02/02/23 02:25 Impressions Venous Doppler Study 02/02/23 03:42 RIGHT LOWER EXTREMITY VENOUS DOPPLER HISTORY: right lower ext edema and erythema. dvt? COMPARISON STUDY: None. FINDINGS: There is normal compressibility, flow, and augmentation within the right lower extremity deep venous system. IMPRESSION: No DVT within the right lower extremity ACT 112: Negative or not required by law. Electronically signed by: Ezra Daugherty M.D. 02/02/2023 7:17 AM Soft Tissue Ultrasound 02/02/23 10:12 US soft tissue ext ltd CLINICAL HISTORY: right knee ultrasound. Assess for fluid collection COMPARISON STUDY: Right lower leg CT 01/30/2023. FINDINGS: Real-time sonographic imaging of the right knee was performed with customer account representative images submitted. There is extensive subcutaneous edema with increased echogenicity within the subcutaneous fat. This is similar to the prior CT examination. No loculated fluid collections at this time to suggest an abscess. IMPRESSION: Extensive subcutaneous edema and increased echogenicity within the subcutaneous fat at the right knee. This favors a cellulitis. ACT 112: Negative or not required by law. Electronically signed by: Ezra Daugherty M.D. 02/02/2023 12:02 PM (1) Sepsis Sepsis acute organ dysfunction status: without acute organ dysfunction Sepsis type: sepsis due to unspecified organism Qualified Code(s): A41.9 - Sepsis, unspecified organism
--- NOTE | 2023-02-05 15:27 | Pharmacy Report ---
Pharmacy PK ABX Note - Date of Service February 05, 2023 - Assessment and Plan Assessment 02/05: Plan for patient to be discharged on Monday, after discussion with hospitalist, q12H would be preferred. Level this morning indicates that 1750 mg q12H would be appropriate for now. Will switch to this dosing. 02/04: White count stagnant. Blood cultures negative to date. Per Hospitalist note/ID discussion plan to continue vancomycin x 14 days. Trough this AM predicting below target AUC/NITIN. Will adjust dose. 42 year old M receiving Vancomycin for treatment of right lower extremity cellulitis. * Low grade fever upon admission, since resolved. White count of 20k. ESR > 130. Imaging negative. History of lymphedema. * Blood cultures pending. Plan 02/05: Therapeutic on 1250 mg IV every 8 hours Will change to 1750 mg q12H for ease of outpatient use Random level to be obtained 02/07 AM if still admitted 02/04 * Trough 7.0; * Adjust regimen to 1250 mg IV every 8 hours * This regimen predicts an AUC/NITIN of 540 mg/L.hr * Will obtain level tomorrow prior to 0600 dose. Vancomycin * Loading dose: 2000 mg IV x 1 * Maintenance dose: 1250 mg IV every 12 hours * Regimen is predicted to achieve target AUC/NITIN of 400-600 mg/L.hr * Random level ordered for: 02/04/23 Pharmacy will continue to follow and will adjust dose/frequency as necessary. Thank you. Pharmacy has transitioned to AUC monitoring for vancomycin. AUC/NITIN is the preferred PK/PD target and is associated with decreased risk of nephrotoxicity compared to traditional trough targets.
[2023-02-05] MEDS: CETIRIZINE HCL 10 MG TABLET PO SCH (20:13)
[2023-02-05] MEDS: VANCOMYCIN HCL 1,750 MG in SODIUM CHLORIDE 0.9% 500 ML IV SCH (21:35)
[2023-02-06 07:03] LABS: Basophils # (auto) 0.13 K/uL (0-0.2); Basophils % (auto) 0.8 %; Eosinophils # (auto) 0.53 K/uL (0-0.50); Eosinophils % (auto) 3.3 %; Hematocrit (blood only) 34.3 % (42.0-52.0); Hemoglobin 11.3 g/dl (14.0-18.0); Immature Granulocytes # (auto) 0.32 K/uL (0.01-0.20); Lymphocytes # (auto) 2.26 K/uL (1.2-3.4); Lymphocytes % (auto) 14.1 %; Mean Corpuscular Hemoglobin 29.9 pg (25.0-34.0); Mean Corpuscular Hgb Conc 32.9 g/dL (32.0-36.0); Mean Corpuscular Volume 90.7 fL (80.0-100.0); Monocytes % (auto) 12.5 %; Neutrophils # (auto) 10.82 K/uL (1.40-6.50); Neutrophils % (auto) 67.3 %; Platelet Count 442 K/uL (130-400); RDW Coefficient of Variation 14.9 % (11.5-14.5); RDW Standard Deviation 49.5 fL (36.4-46.3); Red Blood Count 3.78 M/uL (4.70-6.10); White Blood Count 16.06 K/ul (4.8-10.8)
[2023-02-06 07:18] LABS: Albumin Globulin Ratio 0.8 (0.9-2); Albumin Level 3.1 gm/dl (3.4-5.0); Bilirubin,Total 0.4 mg/dl (0.2-1.0); Calcium 8.1 mg/dl (8.5-10.1); Creatinine Clr Calc Pharmacy 115.4 ml/min; Est GFR (African American) 119.3 ml/min; Est GFR (Non-African American) 102.9 ml/min; Globulin 3.9 gm/dl (2.5-4.0); Potassium 3.9 mmol/L (3.5-5.1)
[2023-02-06] MEDS: ENOXAPARIN INJ 40 MG/0.4 ML SYR SQ SCH (08:30)
[2023-02-06] MEDS: MONTELUKAST SODIUM 10 MG TABLET PO SCH (08:31)
[2023-02-06] MEDS: FAMOTIDINE 20 MG TAB PO SCH (08:31)
[2023-02-06] MEDS: lisinopril 20 MG TAB PO SCH (08:31)
[2023-02-06] MEDS: PANTOprazole 40 MG TAB PO SCH (08:31)
[2023-02-06] MEDS: GABAPENTIN 800 MG TAB PO SCH ×2 (08:32→13:44)
[2023-02-06] MEDS: ADVANCED PROBIOTIC 1250 MG CAPSULE PO SCH (08:32)
[2023-02-06] MEDS: amLODIPine BESYLATE 5 MG TAB PO SCH (08:32)
[2023-02-06] MEDS: VANCOMYCIN HCL 1,750 MG in SODIUM CHLORIDE 0.9% 500 ML IV SCH ×2 (10:53→17:02)
--- NOTE | 2023-02-06 14:01 | Discharge Summary ---
Date of Service February 06, 2023 Admission HPI Per Admitting Provider This is a 42-year-old male with past medical history significant for hypertension, right lower extremity lymphedema, ongoing tobacco abuse, GERD, obesity, bronchitis, presents with right lower extremity cellulitis. The wes nava was here recently in the hospital for right lower extremity cellulitis, discharge was on 01/31/2023 with PO Zyvox. In the hospital initially treated with daptomycin and Zosyn, which was changed to vancomycin and Zosyn. Infectious Disease recommended Zyvox for 14 days. The patient states going home his redness below the knee is okay, but started developing redness and swelling in the thigh region, which worried and came to the ER. In the ER, labs showed white count went up from 15 to 19, procalcitonin high at 1.7. The patient denies any fevers, says has pain in right leg when he stands up, but is able to ambulate.Had diarrhea three episodes. Denies any blood in the stools. Normal bladder movements. No burning micturitions. No hematuria. No chest pain, no runny nose or shortness of breath. Has smoker's cough. No nausea, no abdominal pain. Appetite is okay. Currently, no headache, no blurred visions, no runny nose, no sore throat, hemodynamically stable. Admission Exam Per Admitting Provider GENERAL: The patient is obese, not in acute distress. VITAL SIGNS: Temperature 37.8, pulse 104, respiratory rate 15, blood pressure 121/82, oxygen 98% on room air. HEENT: Pupils equal, round and reactive to light. Oral mucosa moist. NECK: No JVD, no neck masses. CARDIOVASCULAR: S1 and S2 heard. Regular rate and rhythm. No murmur, no gallop. RESPIRATORY SYSTEM: Normal AP diameter. No accessory muscle use. No wheezing, no crackles. ABDOMEN: Soft, bowel sounds present, nontender, no distention. CENTRAL NERVOUS SYSTEM: Cranial nerves II through XII are grossly intact, nonfocal. EXTREMITIES: Right lower extremity erythematous from thigh to foot, on the nettles weeping seen. Principal Diagnosis Sepsis Right lower extremity cellulitis Discharge Data Allergies Allergy/AdvReac Type Severity Reaction Status Date / Time omeprazole Allergy Unknown ITCHING Verified 01/28/23 08:24 Consultations 02/02/23 00:31 ED Decision to Admit Stat Ordered Studies 02/02/23 03:42 US soft tissue groin Routine US venous doppler LE RT Routine 02/02/23 10:12 US soft tissue ext ltd Routine Hospital Course (1) Sepsis: (2) Cellulitis of right lower extremity: (3) Hypertension: (4) Tobacco abuse: (5) Morbid obesity: Plan Recent admission from 01/28 to 02/16 with right lower extremity cellulitis MRI done during last admission did not show any fluid collection/abscess. Was evaluated by infectious disease; discharged on Zyvox for 14 days. Comes back to the ED as the redness progressed to his knee and upper thigh. Leukocytosis +nt on admission ESR elevated to greater than 130. Pro-Tomasz elevated Venous duplexno DVT Soft tissue ultrasound of the groin shows lymphadenopathy likely reactive. Soft tissue USG knee- negative for any effusion. Plan; -Discussed with infectious disease regarding failure of oral treatment. Recommend IV vancomycin for total of 14 days. Initially patient was prescribed vancomycin 1250 mg twice daily as per pharmacy recommendation. Random vancomycin level was found to be subtherapeutic. Discussed with pharmacy again; [place] [address] [place] twice daily. Patient discharged home with home health; antibiotics to be given through PICC line till February 10, patient to be on linezolid 600 mg twice daily for 3 more days till February 13. -Lab work including CBC, CMP and random vancomycin level to be done on February 08 -PCP follow-up set up as outpatient. -All his home medication were resumed at discharge. Total Time Total Time Spent Total Time Spent (In Minutes): 40 Total Time Includes: Examination of the Patient, Discharge Planning, Medication Reconciliation, Communication With Other Providers and Other Discharge Plan Discharge Items Patient Disposition: Home - Home Health Services Reason For Visit: LEG INFECTION Discharge Diagnosis: Sepsis Right leg cellulitis Activity: Resume your previous activity Non-emergency contact: Primary Care Provider Call non-emergency contact if: you have any medication questions and your symptoms worsen Follow-up/Referrals: Joselito Che MD [Primary Care Provider] - (Date & Time 02/10/2023 3:00 PM Provider Joselito Che MD [facility] ) Diet: Regular Addtl Attending Provider Instructions: You were admitted to the hospital with cellulitis of your right leg. You are prescribed vancomycin 1750 mg twice daily till February 10. Please take linezolid 600 mg twice daily for 3 more days from February 11 to February 13. It was prescribed to you in your previous hospitalization. The PICC line should be taken out as soon as the IV vancomycin treatment course is completed (i.e on January) You will have blood work done on February 08. The results needs to be followed up by your primary care doctor. Please keep your leg elevated. You have follow-up with your primary care doctor on February 10 at 3 PM. Pending Studies at Discharge: No Stand-Alone Forms: My [facility], Smoking Cessation Medications and DC Order Prescriptions: Continued gabapentin 800 mg tablet 800 mg PO TID amlodipine 10 mg tablet 10 mg PO QAM montelukast 10 mg tablet 10 mg PO QAM fluticasone propionate [Flovent HFA] 220 mcg/actuation HFA aerosol inhaler 1 inh INHALATION BID PRN (Reason: Shortness Of Breath Or Wheezing) azelastine 137 mcg (0.1 %) aerosol,spray 1 spray INTRANASAL DAILY PRN (Reason: Nasal Congestion) albuterol sulfate [ProAir HFA] 90 mcg/actuation HFA aerosol inhaler 1 inh INHALATION Q6 PRN (Reason: Shortness Of Breath Or Wheezing) famotidine 20 mg tablet 20 mg PO BID pantoprazole 40 mg Tablet,Delayed Release (Dr/Ec) 40 mg PO QAM lisinopril 20 mg tablet 20 mg PO DAILY levocetirizine 5 mg tablet 5 mg PO QPM hydroxyzine HCl 25 mg Tablet 25 mg PO Q6H PRN (Reason: Itching) fluticasone propionate 50 mcg/actuation [place],Suspension 1 spray INTRANASAL DAILY PRN (Reason: Allergy Symptoms) Rx Instructions: administer into each nostril Discontinued doxycycline hyclate 100 mg capsule 100 mg PO BID Rx Instructions: x 10 days amoxicillin 875 mg tablet 875 mg PO BID Rx Instructions: x 20 days linezolid 600 mg tablet 600 mg PO BID 14 Days Qty: 28 0RF Discharge Orders: Discharge Order (Routine); Ordered 02/06/23 Ordered By: Juanjose Garrett Admission Data Admit Date/Time: 02/02/23 01:29 Attending Provider: Juanjose Garrett Admit Provider: [place] Nance Primary Care Provider: Joselito Che Other Providers: [place] Nance ; [facility],Home [facility] ; [facility],Referral Center ; [facility]
== END 2023-02-06 20:00 | disposition home health service (06) | DRG 872 ==
LOC: ED 22:09 → 1E 02-02 01:29 → 2N 02-02 08:46 → 3N 02-03 21:17
DX: A41.9 Sepsis, unspecified organism; K21.9 Gastro-esophageal reflux disease without esophagitis; L03.115 Cellulitis of right lower limb; F17.210 Nicotine dependence, cigarettes, uncomplicated; I10 Essential (primary) hypertension; E66.01 Morbid (severe) obesity due to excess calories; Z79.899 Other long term (current) drug therapy; Z68.36 Body mass index [BMI] 36.0-36.9, adult; Z20.822 Contact with and (suspected) exposure to COVID-19; Z88.8 Allergy status to other drugs, medicaments and biological substances